=== PATIENT | male | born 1955 | race Caucasian/White ===

== ENCOUNTER 2021-06-19 11:56 | Day surgery (SDC) | payer MEDICARE ==
[2021-06-19 12:51] VITALS: RESP 16
[2021-06-19 13:02] LABS: Glucose,Whole Blood 119 mg/dL (75-99)
[2021-06-19] MEDS ORDERED: LACTATED RINGERS 1,000 ML IV ONE (13:03)
[2021-06-19] MEDS ORDERED: ONDANSETRON 4 MG/2 ML VIAL ONE (13:30)
[2021-06-19] MEDS ORDERED: MIDAZOLAM 2 MG/2 ML VIAL IVP ONE (13:36)
[2021-06-19] MEDS ORDERED: ONDANSETRON 4 MG/2 ML VIAL IVP ONE (13:36)
[2021-06-19] MEDS ORDERED: HEPARIN SODIUM,PORCINE 5,000 UNIT/ML 1 ML VIAL SQ ONE (13:51)
[2021-06-19] MEDS ORDERED: HEPARIN SODIUM,PORCINE/PF 5,000 UNIT/0.5 ML SYRINGE SQ ONE (13:52)
--- NOTE | 2021-06-19 14:01 | P.GSHP ---
History of Present Illness H&P Date: 06/19/21 Chief Complaint: Pancreatic cancer 65-year-old male here today for elective Port-A-Cath placement. Patient was recently diagnosed with pancreatic cancer involving the body of the pancreas. During recent exploration was found to have carcinomatosis. Medications and Allergies Home Medications Medication Instructions Recorded Confirmed Type Dulaglutide [Trulicity] 0.75 mg SQ WEEKLY 06/19/21 06/19/21 History Multivitamin [Multivitamins Adult 1 each PO DAILY 06/19/21 06/19/21 History Gummies] lisinopriL [Zestril] 5 mg PO DAILY 06/19/21 06/19/21 History Allergies Allergy/AdvReac Type Severity Reaction Status Date / Time Penicillins Allergy Unknown Verified 06/19/21 12:45 Surgical - Exam Vital Signs Temp Pulse Resp BP Pulse Ox 98.1 F 72 16 148/74 98 06/19/21 12:50 06/19/21 12:50 06/19/21 12:50 06/19/21 12:50 06/19/21 12:50 Physical exam: General: Well-developed, well-nourished HEENT: Normocephalic, sclerae nonicteric Abdomen: Nontender, nondistended Extremities: No edema Neuro: Alert and oriented Results - Labs Abnormal Lab Results - Last 24 Hours (Table) 06/19/21 Range/Units 13:00 POC Glucose (mg/dL) 119 H (75-99) mg/dL Assessment and Plan (1) Pancreatic cancer Narrative/Plan: 65-year-old male with pancreatic cancer. We'll proceed with Port-A-Cath placement at this time. Risks of bleeding, infection, DVT, pneumothorax, catheter malfunction, anesthesia related complications were discussed. The patient understands and wishes to proceed. Current Visit: Yes Status: Acute Code(s): C25.9 - MALIGNANT NEOPLASM OF PANCREAS, UNSPECIFIED SNOMED Code(s): 342109107
[2021-06-19] MEDS ORDERED: MIDAZOLAM 2 MG/2 ML VIAL ONE (14:03)
[2021-06-19] MEDS ORDERED: fentaNYL (PF) 50 MCG/ML 2 ML AMP ONE (14:03)
[2021-06-19] MEDS ORDERED: LIDOCAINE 1% INJ 10MG/ML (20 ML MDV) ONE (14:03)
[2021-06-19] MEDS ORDERED: PROPOFOL 10 MG/ML 20 ML VIAL IV ONE (14:03)
[2021-06-19] MEDS ORDERED: SODIUM CHLORIDE 0.9% 50 ML with ceFAZolin 2,000 MG IV ONE ×2 (14:08)
[2021-06-19] MEDS ORDERED: LIDOCAINE 1% INJ 10MG/ML (20 ML MDV) SQ ONE ×2 (14:21)
[2021-06-19] MEDS ORDERED: HYDROcodone/APAP 5-325MG 1 EACH TAB PO PRN (14:59)
[2021-06-19] MEDS ORDERED: NALOXONE 0.4 MG/ML 1 ML VIAL IV PRN (14:59)
--- NOTE | 2021-06-19 15:00 | P.OP ---
Date of Procedure: 06/19/21 Procedure(s) Performed: PREOPERATIVE DIAGNOSIS: Pancreatic cancer POSTOPERATIVE DIAGNOSIS: Same PROCEDURE: Port-A-Cath placement with fluoroscopic and ultrasound guidance SURGEON: Sammie EBL: Minimal ANESTHESIA: Sedation COMPLICATIONS: None OPERATIVE PROCEDURE: Patient was brought and placed on the operative table in the supine position. The patient was sedated per anesthesia that time. The chest and neck were prepped and draped in usual sterile fashion. The ultrasound probe was used to identify the location of the right internal jugular vein. The skin was localized with lidocaine. The Seldinger needle was advanced into the IJ under ultrasound guidance. The wire was advanced through the needle under fluoroscopic guidance into the superior vena cava. A port pocket was created in the right infraclavicular location. The catheter was tunneled from the wire entrance site to the port pocket. The port was then connected to the catheter. The dilator introducer was threaded over the guidewire. The guidewire and dilator were then removed. The catheter was advanced through the introducer and introducer was then removed. The tip was seen to be in the right atrial junction via fluoroscopy. A picture of the radiograph showing the tip at the radial digital junction was taken. Port was flushed with both saline and a Hep- Lock solution. There was good flow both in and out of the port. The port was sutured in underlying tissues using 3-0 silk sutures. The subcutaneous tissues were reapproximated using 3-0 Vicryl sutures and the skin at both locations using 4-0 Monocryl sutures. Skin glue and sterile dressings then applied. DISPOSITION: Stable to recovery room
--- NOTE | 2021-06-19 15:05 | FL ---
EXAMINATION TYPE: FL guided central line placemt DATE OF EXAM: 06/19/2021 CLINICAL HISTORY: Port-A-Cath insertion. TECHNIQUE: Fluoroscopy. COMPARISON: None. FINDINGS: Fluoroscopic guidance was provided during Port-A-Cath insertion procedure performed by Dr. Lombardo. A total of 49 seconds of fluoroscopic time was utilized during the procedure and 5 spot imag es was acquired. 5 images acquired show guidewire and subsequent placement of right internal jugular Mediport catheter with tip in the SVC. IMPRESSION: As Above.
[2021-06-19 15:09] VITALS: TEMP 97.7
--- NOTE | 2021-06-19 15:38 | XR ---
EXAMINATION TYPE: XR chest 1V confirm line [facility] DATE OF EXAM: 06/19/2021 COMPARISON: NONE HISTORY: Port-A-Cath insertion. TECHNIQUE: 2 AP portable semiupright views of the chest are obtained. FINDINGS: There is right internal jugular Mediport catheter terminating in SVC. No pneumothorax is se en. Bilateral lungs are clear. The cardiac silhouette size is within normal limits. The osseous st ructures are intact. Overlying EKG leads are present. IMPRESSION: As above.
[2021-06-19 16:04] VITALS: BP 129/75; PULSE 60
== END 2021-06-19 16:21 | disposition home or self-care (01) ==
LOC: OR 11:56
PROVIDERS: ATTEND Surgery
DX: C25.9 Malignant neoplasm of pancreas, unspecified (principal)
CPT/HCPCS: 36556; 77001; C1788; J2250; J1644; J2405; J0690; J2001; J3010; J1642; J2704

== ENCOUNTER → 2021-09-01 | Outpatient (CLI) | payer MEDICARE ==
[2021-09-01 13:55] LABS: African American GFR (CKD) >90 (>60 ml/min/1.73 sqM); Blood Urea Nitrogen 15 mg/dL (9-20); Non-African American GFR(CKD) >90 (>60 ml/min/1.73 sqM)
--- NOTE | 2021-09-01 15:06 | CT ---
EXAMINATION TYPE: CT abdomen w con DATE OF EXAM: 09/01/2021 COMPARISON: None HISTORY: C25.1 Obs for Mets. Pancreatic cancer CT DLP: 744 mGycm CONTRAST: CT scan of the abdomen and pelvis is performed without Oral Contrast and with IV Contrast, patient in jected with 100 mL of Isovue 370. FINDINGS: LUNG BASES-: No visible nodule. No infiltrate. LIVER/GB: No calcified gallstones. No space occupying hepatic lesion. Biliary tree is of normal ca liber. PANCREAS: The pancreatic body and tail are atrophic. Pancreatic head and neck are free of mass lesion . No inflammatory process seen. SPLEEN: No splenic enlargement. No lesion seen. ADRENALS: Mild thickening of the adrenal glands may reflect No nodule. No thickening. KIDNEYS/BLADDER: No hydronephrosis. No nephrolithiasis. No distinct renal mass. Urinary bladder g rossly unremarkable. BOWEL: Visualized bowel loops are of normal caliber. LYMPH NODES: No greater than 1cm abdominal or pelvic lymph nodes are appreciated. AORTA: No significant abnormality. OSSEOUS STRUCTURES: No significant abnormality is seen. OTHER: No significant additional abnormality is seen. IMPRESSION: 1. The pancreatic body and tail are atrophic. Pancreatic head and neck are free of mass lesion. No ev idence for metastatic disease.
== END | disposition home or self-care (01) ==
LOC: RADPROMAIN 08:29
PROVIDERS: ATTEND Internal Medicine Hematology & Oncology
DX: C25.1 Malignant neoplasm of body of pancreas (principal)
CPT/HCPCS: 82565; 84520; 74160; 36415; Q9967

== ENCOUNTER → 2021-12-25 | Outpatient (CLI) | payer MEDICARE ==
[2021-12-25 11:45] LABS: African American GFR (CKD) >90 (>60 ml/min/1.73 sqM); Blood Urea Nitrogen 16 mg/dL (9-20); Non-African American GFR(CKD) >90 (>60 ml/min/1.73 sqM)
--- NOTE | 2021-12-25 13:38 | CT ---
EXAMINATION TYPE: CT ChestAbdPelvis w con DATE OF EXAM: 12/25/2021 COMPARISON: 09/01/2021 HISTORY: 66-year-old male f/u pancreatic cancer. C25.1 MALIGNANT NEOPLASM OF BODY OF PANCREAS TECHNIQUE: Contiguous axial scanning of the chest, abdomen, and pelvis performed with IV Contrast, pa tient injected with 100 mL of Isovue 300. Delayed images through the kidneys were obtained. Coronal/s agittal reconstructions performed. CT DLP: 888.1 mGycm Automated exposure control for dose reduction was used. FINDINGS: CHEST: Heart normal size with trace 5 mm anterior pericardial fluid. LAD coronary artery calcifications. Ectatic ascending aorta 3.7 cm. Oval in configuration to the aortic arch. Ectatic upper descending th oracic aorta 3.1 cm. Right anterior chest wall injection port. Catheter tip within the SVC. No thoracic lymphadenopathy by CT size criteria. There is mild centrilobular emphysema especially in the upper lungs. Hyperinflation. No consolidation or pleural effusion. ABDOMEN: No focal liver lesion seen. New mild perihepatic ascites There is some soft tissue thickening at the level of the gastric antrum measuring 3.9 x 3.6 cm. Uncle ar if this represents nondistended segment of stomach. New caliber narrowing of the main portal vein and portal venous confluence, and axial image 66. Mild thickening of the left adrenal gland is unchanged. Gallbladder, right adrenal gland, kidneys, and spleen within normal limits. There appears to be some progressive atrophy of the tail and distal body of the pancreas. The previou sly seen mild fullness at the level of the pancreatic body adjacent to dystrophic calcification is no longer seen. Mild atherosclerotic calcifications infrarenal abdominal aorta and iliac arteries. No dilated small bowel or free air. Additional new mild to moderate pelvic free fluid anteriorly. There is also some omental stranding an d soft tissue thickening along the lower abdomen, axial image 89. Some additional similar changes are present at the right lower quadrant adjacent to the appendix e and within the mesentery, axial image 92 and 96. Some lesser degree of similar changes are present along the left lower quadrant, axial image 100. Otherwise, no mesenteric or retroperitoneal lymphadenopathy seen. PELVIS: Circumferential bladder wall thickening. Prostatomegaly at 6.6 cm wide. Mild to moderate pelvic free fluid. No pelvic lymphadenopathy seen. BONES: Mild degenerative change of the hips. Degenerative change of the right SI joint. Facet arthropathy mi d to lower lumbar spine. Trace grade 1 retrolisthesis L2-L3 and L3-L4. No osseous destructive process seen. IMPRESSION: 1. THE PREVIOUSLY SEEN SUBTLE SOFT TISSUE FULLNESS AT THE BODY OF THE PANCREAS IS NO LONGER SEEN. THE RE IS SLIGHT PROGRESSION IN ATROPHY OF THE PANCREATIC TAIL. 2. HOWEVER, THERE ARE NEW CHANGES INCLUDING DECREASED CALIBER TO THE MAIN PORTAL VEIN AND PORTAL VENO US CONFLUENCE THAT COULD BE SECONDARY TO SOME INTERVAL RADIATION OR OTHER POSTTREATMENT CHANGE. 3. THE PRESENCE OF NEW MILD PERIHEPATIC ASCITES, NEW MILD TO MODERATE PELVIC ASCITES, LOWER OMENTAL S OFT TISSUE THICKENING, AND SOME ADDITIONAL LOWER QUADRANT MESENTERIC THICKENING IS NONSPECIFIC BUT EA RLY PERITONEAL SPREAD OF DISEASE IS NOT EXCLUDED AT THIS TIME. 4. ADDITIONALLY, NEW 3.9 CM SOFT TISSUE THICKENING AT THE GASTRIC ANTRUM COULD REPRESENT A NONDISTEND ED SEGMENT OF STOMACH. SEROSAL INVOLVEMENT NOT EXCLUDED AT THIS TIME.
== END | disposition home or self-care (01) ==
LOC: RADCTMAIN 10:22
PROVIDERS: ATTEND Internal Medicine Hematology & Oncology
DX: C25.1 Malignant neoplasm of body of pancreas (principal); R18.8 Other ascites
CPT/HCPCS: 82565; 84520; 71260; 74177; 36415; Q9967

== ENCOUNTER 2022-01-02 16:14 | Inpatient (IN) | payer MEDICARE ==
[2022-01-02 17:46] LABS: Basophils # (A) 0.1 k/uL (0-0.2); Basophils % (A) 0 %; Eosinophils # (A) 0.1 k/uL (0-0.7); Eosinophils % (A) 1 %; HCT 48.8 % (39.0-53.0); Lymphocytes % (A) 8 %; MCH 30.1 pg (25.0-35.0); MCHC 32.7 g/dL (31.0-37.0); Mean Platelet Volume 8.2; Monocytes # (A) 0.5 k/uL (0-1.0); Monocytes % (A) 4 %; Neutrophils # (A) 10.9 k/uL (1.3-7.7); Neutrophils % (A) 86 %; Platelet Count 183 k/uL (150-450); RBC 5.31 m/uL (4.30-5.90); RDW 15.6 % (11.5-15.5); WBC 12.7 k/uL (3.8-10.6)
--- NOTE | 2022-01-02 17:53 | ED ---
General Adult HPI - General Chief complaint: Abdominal Pain Stated complaint: 2 Weeks constipated, stage 4 cancer Time Seen by Provider: 01/02/22 17:25 Source: patient, family Mode of arrival: wheelchair Limitations: no limitations - History of Present Illness Initial comments: Dictation was produced using [employer] dictation software. please excuse any grammatical, word or spelling errors. Chief Complaint: 66-year-old male past medical history of pancreatic cancer on chemotherapy presents to the ER for concerns of constipation History of Present Illness: 76-year-old male pancreatic cancer. Patient was told by his oncologist come to the ER to be evaluated. Patient states that he has not had a bowel movement in 2-3 weeks. Patient states he has been passing gas. He has history of pancreatic cancer for which he gets chemotherapy for. Patient denies any fever. He has had poor appetite. He has been having significant nausea and vomiting. Patient does have some mild periumbilical abdominal pain. Patient recently had a CT ordered by oncologist for surveillance. There was evidence of peritoneal inflammation. Sates that he has been passing gas. The ROS documented in this emergency department record has been reviewed and confirmed by me. Those systems with pertinent positive or negative responses have been documented in the HPI. All other systems are other negative and/or noncontributory. PHYSICAL EXAM: General Impression: Alert and oriented x3, not in acute distress HEENT: Normocephalic atraumatic, extra-ocular movements intact, pupils equal and reactive to light bilaterally, mucous membranes moist. Cardiovascular: Heart regular rate and rhythm Chest: Able to complete full sentences, no retractions, no tachypnea Abdomen: abdomen soft, mild palpatory tenderness to the periumbilical area, non-distended, no organomegaly Musculoskeletal: Pulses present and equal in all extremities, no peripheral raad a Motor: no focal deficits noted Neurological: CN II-XII grossly intact, no focal motor or sensory deficits noted Skin: Intact with no visualized rashes Psych: Normal affect and mood ED course: 66-year-old male past medical history of pancreatic cancer presents to the emergency room for concerns of constipation. Vital signs upon arrival are within acceptable limits. Patient does not appear to be in acute distress at the bedside. Patient complaining of severe nausea upon reevaluation at 7:42 PM. Labs obtained showing mild leukocytosis 12.7. M will was stable. Coag panel is negative. Metabolic panel shows findings within acceptable limits there does appear to be some mild dehydration. At this point there is concern that his nausea is cancer related. Does not appear to be obstruction or acute processes on patient's abdominal x-ray. Disposition options were discussed. Patient has been failing outpatient treatment. he would benefit from inpatient stay for IV hydration, IV antiemetics and oncology consult. Patient mid to [facility]. - Related Data Home Medications Medication Instructions Recorded Confirmed Dulaglutide [Trulicity] 0.75 mg SQ WEEKLY 06/19/21 06/19/21 Multivitamin [Multivitamins Adult 1 each PO DAILY 06/19/21 06/19/21 Gummies] lisinopriL [Zestril] 5 mg PO DAILY 06/19/21 06/19/21 Allergies Allergy/AdvReac Type Severity Reaction Status Date / Time Penicillins Allergy Unknown Verified 06/19/21 12:45 Review of Systems ROS Statement: Those systems with pertinent positive or pertinent negative responses have been documented in the HPI. ROS Other: All systems not noted in ROS Statement are negative. Past Medical History Past Medical History: Diabetes Mellitus Additional Past Medical History / Comment(s): psncreatic ca History of Any Multi-Drug Resistant Organisms: None Reported Additional Past Surgical History / Comment(s): exploratory laporatomy Past Psychological History: No Psychological Hx Reported Smoking Status: Current every day smoker Past Alcohol Use History: None Reported Past Drug Use History: None Reported General Exam Limitations: no limitations Course Vital Signs 01/02/22 16:36 Temperature 98.1 F Pulse Rate 85 Respiratory 18 Rate Blood Pressure 131/85 O2 Sat by Pulse 97 Oximetry Medical Decision Making - Lab Data Result diagrams: 01/02/22 17:41 01/02/22 17:41 Lab Results 01/02/22 01/02/22 01/02/22 Range/Units 17:41 17:41 17:41 WBC 12.7 H (3.8-10.6) k/uL RBC 5.31 (4.30-5.90) m/uL Hgb 16.0 (13.0-17.5) gm/dL Hct 48.8 (39.0-53.0) % MCV 92.0 (80.0-100.0) fL MCH 30.1 (25.0-35.0) pg MCHC 32.7 (31.0-37.0) g/dL RDW 15.6 H (11.5-15.5) % Plt Count 183 (150-450) k/uL MPV 8.2 Neutrophils % 86 % Lymphocytes % 8 % Monocytes % 4 % Eosinophils % 1 % Basophils % 0 % Neutrophils # 10.9 H (1.3-7.7) k/uL Lymphocytes # 1.0 (1.0-4.8) k/uL Monocytes # 0.5 (0-1.0) k/uL Eosinophils # 0.1 (0-0.7) k/uL Basophils # 0.1 (0-0.2) k/uL PT 12.0 (9.0-12.0) sec INR 1.1 (<1.2) APTT 23.2 (22.0-30.0) sec Sodium 135 L (137-145) mmol/L Potassium 4.3 (3.5-5.1) mmol/L Chloride 94 L (98-107) mmol/L Carbon Dioxide 23 (22-30) mmol/L Anion Gap 18 mmol/L BUN 21 H (9-20) mg/dL Creatinine 0.80 (0.66-1.25) mg/dL Est GFR (CKD-EPI)AfAm >90 (>60 ml/min/1.73 sqM) Est GFR (CKD-EPI)NonAf >90 (>60 ml/min/1.73 sqM) Glucose 125 H (74-99) mg/dL Calcium 9.3 (8.4-10.2) mg/dL Total Bilirubin 1.4 H (0.2-1.3) mg/dL AST 23 (17-59) U/L ALT 17 (4-49) U/L Alkaline Phosphatase 93 (38-126) U/L Total Protein 6.9 (6.3-8.2) g/dL Albumin 4.4 (3.5-5.0) g/dL Disposition Clinical Impression: Nausea, Dehydration Disposition: ADMITTED IP TO THIS HOSP Condition: Fair Referrals: Blair Zuñiga DO [Primary Care Provider] - 1-2 days Decision Time: 19:44
[2022-01-02 17:57] LABS: INR 1.1 (<1.2); Partial Thromboplastin Time 23.2 sec (22.0-30.0)
[2022-01-02 17:59] LABS: ALT 17 U/L (4-49); AST 23 U/L (17-59); African American GFR (CKD) >90 (>60 ml/min/1.73 sqM); Albumin 4.4 g/dL (3.5-5.0); Alkaline Phosphatase 93 U/L (38-126); Anion Gap 18 mmol/L; Blood Urea Nitrogen 21 mg/dL (9-20); Calcium 9.3 mg/dL (8.4-10.2); Carbon Dioxide 23 mmol/L (22-30); Chloride 94 mmol/L (98-107); Glucose 125 mg/dL (74-99); Non-African American GFR(CKD) >90 (>60 ml/min/1.73 sqM); Potassium 4.3 mmol/L (3.5-5.1); Sodium 135 mmol/L (137-145); Total Bilirubin 1.4 mg/dL (0.2-1.3); Total Protein 6.9 g/dL (6.3-8.2)
--- NOTE | 2022-01-02 19:12 | XR ---
EXAMINATION TYPE: XR abdomen 1V DATE OF EXAM: 01/02/2022 COMPARISON: NONE HISTORY: Constipation TECHNIQUE: 2 views upright FINDINGS: There is some contrast material in the large bowel. No sign of intestinal obstruction or pn eumoperitoneum. Fecal pattern is normal. No evidence of a mass. Lung bases are clear. No calcificatio ns seen over the kidneys. IMPRESSION: Nonacute abdomen
[2022-01-02] MEDS ORDERED: SODIUM CHLORIDE 0.9% 1,000 ML IV STA (19:38)
[2022-01-02] MEDS ORDERED: ACETAMINOPHEN TAB 325 MG TAB PO PRN (19:41)
[2022-01-02] MEDS ORDERED: NALOXONE 0.4 MG/ML 1 ML VIAL IV PRN (19:41)
[2022-01-02] MEDS ORDERED: ONDANSETRON 4 MG/2 ML VIAL IVP PRN (19:41)
[2022-01-02] MEDS: SODIUM CHLORIDE 0.9% 1,000 ML IV SCH (20:43)
[2022-01-02] MEDS ORDERED: DOCUSATE 100 MG CAP PO PRN (21:45)
[2022-01-02] MEDS ORDERED: MIRTAZAPINE 15 MG TAB PO PRN (21:45)
[2022-01-02] MEDS ORDERED: DEXTROSE 50% SYRINGE 50 ML IVP PRN ×2 (21:59)
--- NOTE | 2022-01-02 21:59 | P.HPIM ---
History of Present Illness H&P Date: 01/02/22 Chief Complaint: Intractable nausea The patient is a 66-year-old male history of pancreatic cancer status post chemotherapy last 26 of November. On December [address] of abdomen done which showed some peritoneal inflammation. The patient states since that morning on the CAT scan he knows he wasn't feeling well. He states since then he has had nausea and has not had a bowel movement for the last 2 weeks. He states he is passing gas. The patient states he's been unable to eat the last 5 days and has emesis even with water. The patient describes those symptoms to his oncologist he states he tried to take [id number]-[id number] laxatives however he was unable to tolerate any oral medications. He presented to the emergency room is hospitalized for further management. The patient had an x-ray which showed the presence of contrast in the large bowel. A CT of the abdomen showed a new 3.9 cm soft tissue thickening at the gastric antrum possible and n ondistended segment of stomach. The patient denies any fevers, chest pain, shortness of breath. The patient's vital signs showed a temperature of 98.1, pulse 85, respiratory rate 18, systolic blood pressure 131, diastolic blood pressure 85. He had a leukocytosis of 12.7, bun 21, creatinine 0.8. Review of Systems complete review of systems was done and negative other than as stated above Past Medical History Past Medical History: Diabetes Mellitus, Prostate Disorder Additional Past Medical History / Comment(s): pancreatic ca-dx may 2021-chemo x13 treatments History of Any Multi-Drug Resistant Organisms: None Reported Additional Past Surgical History / Comment(s): exploratory laporatomy for poss pancrease removal 05/31. Past Anesthesia/Blood Transfusion Reactions: No Reported Reaction Past Psychological History: No Psychological Hx Reported Smoking Status: Current every day smoker Past Alcohol Use History: None Reported Past Drug Use History: None Reported Medications and Allergies Home Medications Medication Instructions Recorded Confirmed Type Dulaglutide [Trulicity] 0.75 mg SQ WEEKLY 06/19/21 01/02/22 History Multivitamin [Multivitamins Adult 1 tab PO DAILY 06/19/21 01/02/22 History Gummies] Docusate [Colace] 100 mg PO BID PRN 01/02/22 01/02/22 History Mirtazapine [Remeron] 15 mg PO HS PRN 01/02/22 01/02/22 History Saw [place] 500 mg PO BID 01/02/22 01/02/22 History Vit C/E/Zn/Coppr/Lutein/Zeaxan 1 tab PO DAILY 01/02/22 01/02/22 History [Preservision Areds 2 Chew Tab] Allergies Allergy/AdvReac Type Severity Reaction Status Date / Time Penicillins Allergy Rash/Hives Verified 01/02/22 20:17 Physical Exam Vitals: Vital Signs Temp Pulse Pulse Resp BP BP Pulse Ox 01/02/22 21:37 98.5 F 74 16 161/78 98 01/02/22 16:36 98.1 F 85 18 131/85 97 Intake and Output 01/02/22 01/02/22 01/02/22 06:59 14:59 22:59 Other: Weight 76 kg - Constitutional thin male General appearance: no acute distress - EENT Eyes: PERRLA Ears: bilateral: normal - Cardiovascular Rhythm: regular - Gastrointestinal General gastrointestinal: normal bowel sounds - Integumentary Integumentary: normal turgor - Neurologic Neurologic: CNII-XII intact - Musculoskeletal Musculoskeletal: strength equal bilaterally - Psychiatric Psychiatric: A&O x's 3, appropriate affect Results CBC & Chem 7: 01/02/22 17:41 01/02/22 17:41 Labs: Abnormal Lab Results - Last 24 Hours (Table) 01/02/22 01/02/22 Range/Units 17:41 17:41 WBC 12.7 H (3.8-10.6) k/uL RDW 15.6 H (11.5-15.5) % Neutrophils # 10.9 H (1.3-7.7) k/uL Sodium 135 L (137-145) mmol/L Chloride 94 L (98-107) mmol/L BUN 21 H (9-20) mg/dL Glucose 125 H (74-99) mg/dL Total Bilirubin 1.4 H (0.2-1.3) mg/dL Abdominal x-ray: report reviewed Thrombosis Risk Factor Assmnt - Choose All That Apply Any of the Below Risk Factors Present?: No Each Risk Factor Represents 2 Points: Age 61-74 years, Malignancy Other congenital or acquired thrombophilia - If yes, enter type in comment: No Thrombosis Risk Factor Assessment Total Risk Factor Score: 4 Thrombosis Risk Factor Assessment Level: Moderate Risk Assessment and Plan (1) Nausea Narrative/Plan: Patient with intractable nausea and a significant stool burden noted on x-ray we'll give clear liquids anti-medics avoid input from oncology since his symptoms have progressed will repeat CT of the abdomen with IV contrast Current Visit: Yes Status: Acute Code(s): R11.0 - NAUSEA SNOMED Code(s): 148602459 (2) Dehydration Narrative/Plan: Duration IV fluids. Current Visit: Yes Status: Acute Code(s): E86.0 - DEHYDRATION SNOMED Code(s): 10205804 (3) Pancreatic cancer Narrative/Plan: Possible perineural spread could be contributing to symptoms. Will consult oncology appreciate input. Current Visit: No Status: Acute Code(s): C25.9 - MALIGNANT NEOPLASM OF PANCREAS, UNSPECIFIED SNOMED Code(s): 477588971 (4) Diabetes Narrative/Plan: Patient on weekly Trulicity, monitor blood sugars, sliding scale coverage Current Visit: Yes Status: Acute Code(s): E11.9 - TYPE 2 DIABETES MELLITUS WITHOUT COMPLICATIONS SNOMED Code(s): 40103471 Plan: Clear liquids, repeat CT of the abdomen, oncology consult anti-emetics
--- NOTE | 2022-01-02 23:40 | CT ---
EXAMINATION TYPE: CT abdomen pelvis w con DATE OF EXAM: 01/02/2022 COMPARISON: 12/25/2021 HISTORY: abdominal pain, nausea CT DLP: 648.3 mGycm Automated exposure control for dose reduction was used. CONTRAST: Performed with IV Contrast, patient injected with 100ml mL of Isovue 300. Heart size is normal. Lung bases are clear. No pleural effusion. No pericardial effusion. Liver is intact. Stomach is dilated with fluid. Small bowel is not dilated. Spleen is intact. There i s no pancreatic mass. There is some pancreatic atrophy with enlargement of the pancreatic duct. Gallb ladder appears normal. The bile ducts are not dilated. There is no adrenal mass. Kidneys have normal size. No hydronephrosis. Ureters are not dilated. Delay ed images show normal renal excretion. There is abdominal ascites fluid around the liver. Urinary shantal dder is large. Urinary bladder measures 13.5 cm in length. No inguinal hernia. There is small amount of fluid in the paracolic gutters. There is no mesenteric edema. No free air. No sign of a bowel obstruction. There is contrast material in the large bowel which is not dilated. The lumbar vertebra have normal alignment. No compression fracture. No significant disc space narrowi ng. Bony pelvis is intact. The hip joints are intact. Sacroiliac joints are intact. IMPRESSION: There is abdominal ascites fluid mostly around the liver which is significantly increased compared to recent exam. There is dilated stomach which is increased compared to old exam. This could relate to gastroparesis or gastric outlet obstruction.
[2022-01-03 07:51] LABS: Glucose,Whole Blood 175 mg/dL (70-110)
[2022-01-03] MEDS: INSULIN ASPART (NovoLOG) 100 UNIT/ML VIAL SQ SCH ×4 (08:17→20:21)
[2022-01-03] MEDS: ENOXAPARIN 40 MG/0.4 ML SYRINGE SQ SCH (08:18)
[2022-01-03] MEDS: MULTIVITAMINS, THERA 1 EACH TAB PO SCH (08:18)
[2022-01-03] MEDS: VIT A,C & E-LUTEIN-MINERALS 1 EACH TAB PO SCH (08:19)
[2022-01-03] MEDS ORDERED: NON FORMULARY DRUG (Saw Palmetto [Saw Palmetto] 500 MG Capsule) PO SCH (09:00)
--- NOTE | 2022-01-03 11:20 | P.GSCN ---
History of Present Illness Consult date: 01/03/22 Reason for Consult: Abdominal pain History of present illness: 66-year-old male with history of known pancreatic cancer. He was [place] [facility] [place] [facility] initially for pancreatic resection and was found to have peritoneal implants. Patient was started on palliative chemotherapy at that time. Patient says that he has had issues over the last 2-3 weeks with decreased bowel function. Last bowel movement was about 1-2 weeks ago. He has had decreased oral intake for the last few weeks as well with very little intake in the last 1 week. He has had nausea and vomiting that has increased starting yesterday. He feels full. There is no appetite. He has had further weight loss. CAT scan showed distended stomach consistent with possible gastric outlet obstruction. Also increasing abdominal ascites is noted. Review of Systems The patient denies any acute changes in vision or hearing, no dysphagia or odynophagia, no chest pain or shortness of breath, no dysuria or hematuria, no headache, no runny nose, no rectal bleeding or melena Past Medical History Past Medical History: Diabetes Mellitus, Prostate Disorder Additional Past Medical History / Comment(s): pancreatic ca-dx may 2021-chemo x13 treatments History of Any Multi-Drug Resistant Organisms: None Reported Additional Past Surgical History / Comment(s): exploratory laporatomy for poss pancrease removal 05/31. Past Anesthesia/Blood Transfusion Reactions: No Reported Reaction Past Psychological History: No Psychological Hx Reported Smoking Status: Current every day smoker Past Alcohol Use History: None Reported Past Drug Use History: None Reported Medications and Allergies Home Medications Medication Instructions Recorded Confirmed Type Dulaglutide [Trulicity] 0.75 mg SQ WEEKLY 06/19/21 01/02/22 History Multivitamin [Multivitamins Adult 1 tab PO DAILY 06/19/21 01/02/22 History Gummies] Docusate [Colace] 100 mg PO BID PRN 01/02/22 01/02/22 History Mirtazapine [Remeron] 15 mg PO HS PRN 01/02/22 01/02/22 History Saw [place] 500 mg PO BID 01/02/22 01/02/22 History Vit C/E/Zn/Coppr/Lutein/Zeaxan 1 tab PO DAILY 01/02/22 01/02/22 History [Preservision Areds 2 Chew Tab] Allergies Allergy/AdvReac Type Severity Reaction Status Date / Time Penicillins Allergy Rash/Hives Verified 01/02/22 20:17 Surgical - Exam Vital Signs Temp Pulse Resp BP Pulse Ox 98.1 F 85 18 131/85 97 01/02/22 16:36 01/02/22 16:36 01/02/22 16:36 01/02/22 16:36 01/02/22 16:36 Physical exam: General: Well-developed, well-nourished HEENT: Normocephalic, sclerae nonicteric Abdomen: Mild epigastric tenderness, previous scars noted, no rebound or guarding Extremities: No edema Neuro: Alert and oriented Results - Labs 01/02/22 17:41 01/02/22 17:41 Abnormal Lab Results - Last 24 Hours (Table) 01/02/22 01/02/22 01/03/22 Range/Units 17:41 17:41 07:49 WBC 12.7 H (3.8-10.6) k/uL RDW 15.6 H (11.5-15.5) % Neutrophils # 10.9 H (1.3-7.7) k/uL Sodium 135 L (137-145) mmol/L Chloride 94 L (98-107) mmol/L BUN 21 H (9-20) mg/dL Glucose 125 H (74-99) mg/dL POC Glucose (mg/dL) 175 H (70-110) mg/dL Total Bilirubin 1.4 H (0.2-1.3) mg/dL Diabetes panel 01/02/22 Range/Units 17:41 Sodium 135 L (137-145) mmol/L Potassium 4.3 (3.5-5.1) mmol/L Chloride 94 L (98-107) mmol/L Carbon Dioxide 23 (22-30) mmol/L BUN 21 H (9-20) mg/dL Creatinine 0.80 (0.66-1.25) mg/dL Glucose 125 H (74-99) mg/dL Calcium 9.3 (8.4-10.2) mg/dL AST 23 (17-59) U/L ALT 17 (4-49) U/L Alkaline Phosphatase 93 (38-126) U/L Total Protein 6.9 (6.3-8.2) g/dL Albumin 4.4 (3.5-5.0) g/dL Calcium panel 01/02/22 Range/Units 17:41 Calcium 9.3 (8.4-10.2) mg/dL Albumin 4.4 (3.5-5.0) g/dL Pituitary panel 01/02/22 Range/Units 17:41 Sodium 135 L (137-145) mmol/L Potassium 4.3 (3.5-5.1) mmol/L Chloride 94 L (98-107) mmol/L Carbon Dioxide 23 (22-30) mmol/L BUN 21 H (9-20) mg/dL Creatinine 0.80 (0.66-1.25) mg/dL Glucose 125 H (74-99) mg/dL Calcium 9.3 (8.4-10.2) mg/dL Adrenal panel 01/02/22 Range/Units 17:41 Sodium 135 L (137-145) mmol/L Potassium 4.3 (3.5-5.1) mmol/L Chloride 94 L (98-107) mmol/L Carbon Dioxide 23 (22-30) mmol/L BUN 21 H (9-20) mg/dL Creatinine 0.80 (0.66-1.25) mg/dL Glucose 125 H (74-99) mg/dL Calcium 9.3 (8.4-10.2) mg/dL Total Bilirubin 1.4 H (0.2-1.3) mg/dL AST 23 (17-59) U/L ALT 17 (4-49) U/L Alkaline Phosphatase 93 (38-126) U/L Total Protein 6.9 (6.3-8.2) g/dL Albumin 4.4 (3.5-5.0) g/dL Assessment and Plan (1) Gastric distention Narrative/Plan: 76-year-old male with suspected gastric outlet obstruction from pancreatic cancer. Will place nasogastric tube. Once stomach is decompressed will order a upper GI. We'll follow with you. Current Visit: Yes Status: Acute Code(s): K31.89 - OTHER DISEASES OF STOMACH AND DUODENUM SNOMED Code(s): 525742616
[2022-01-03 12:06] VITALS: BMI 21.4
--- NOTE | 2022-01-03 12:41 | P.PN ---
Subjective Progress Note Date: 01/03/22 Patient still has nausea and vomiting with evidence of gastric outlet obstruction on computed tomography scan. Pending oncology consult. Pending surgery consult. Gen: awake, alert, cachectic HEENT: normocephalic, atraumatic, good hearing acuity, moist mucous membranes Resp: good air exchange, breathing comfortably with no accessory muscle use CVS: good distal perfusion x 4, GI: soft, NTTP, ND : no SPT, no CVAT, wood catheter not present MSK: no pitting edema, no clubbing Neuro: non-focal, moving all extremities Psych: cooperative, euthymic mood Assessment/plan: Gastric outlet obstruction -Admit to inpatient -Surgery consult -NG tube -Nutrition consult for consideration of TPN -Nausea control -IV fluids Metastatic pancreatic cancer Ascites, likely malignant -Oncology consult -Symptomatic management Diabetes -Low-dose insulin sliding scale Patient is DO NOT RESUSCITATE/DO NOT INTUBATE DVT prophylaxis with enoxaparin Objective - Vital Signs Vital signs: Vital Signs Temp 97.5 F L 01/03/22 04:43 Pulse 84 01/03/22 08:41 Resp 18 01/03/22 08:30 BP 146/78 01/03/22 08:41 Pulse Ox 95 01/03/22 04:43 FiO2 Intake & Output 01/02/22 01/03/22 01/03/22 18:59 06:59 18:59 Intake Total 1500 Balance 1500 Weight 73.482 kg 76 kg Intake: Intake, IV Titration 1500 Amount Sodium Chloride 0.9% 1, 1500 000 ml @ 75 mls/hr IV . [id number] [facility] Rx#:[id number] Other: Voiding Method Toilet Toilet - Labs CBC & Chem 7: 01/02/22 17:41 01/02/22 17:41 Labs: Abnormal Lab Results - Last 24 Hours (Table) 01/02/22 01/02/22 01/03/22 Range/Units 17:41 17:41 07:49 WBC 12.7 H (3.8-10.6) k/uL RDW 15.6 H (11.5-15.5) % Neutrophils # 10.9 H (1.3-7.7) k/uL Sodium 135 L (137-145) mmol/L Chloride 94 L (98-107) mmol/L BUN 21 H (9-20) mg/dL Glucose 125 H (74-99) mg/dL POC Glucose (mg/dL) 175 H (70-110) mg/dL Total Bilirubin 1.4 H (0.2-1.3) mg/dL
[2022-01-03 12:56] LABS: Glucose,Whole Blood 161 mg/dL (70-110)
[2022-01-03] MEDS: SODIUM CHLORIDE 0.9% 1,000 ML IV SCH ×2 (13:41→20:21)
[2022-01-03 17:31] LABS: Glucose,Whole Blood 142 mg/dL (70-110)
--- NOTE | 2022-01-03 18:15 | P.CONS ---
History of Present Illness - Reason for Consult Consult date: 01/03/22 Pancreatic cancer Requesting physician: Ifoema Ball - Chief Complaint Intractable nausea - History of Present Illness Mr. Carrion is a very pleasant 66-year-old gentleman with a history of metastatic pancreatic cancer, follows with Dr. Lombardo, with a known peritoneal metastases, on palliative chemotherapy, who is here for feeling ill after having a restaging computed tomography scan done on 12/25/21. He was having increasing nausea which brought him to the hospital. He has been constipated for a couple weeks now but continues to pass gas. Decreased appetite and oral intake for the past few days. CT from 12/25/21 did reveal resolution of the subtle soft tissue fullness was previously seen in the body of the pancreas with slightly increased progression in the pancreatic tail. Post radiation and treatment changes seen in the main portal vein and portal venous confluence. Peritoneal changes were described as omental soft tissue thickening with additional lower quadrant mesenteric thickening that is nonspecific, cannot rule out early metastatic disease, as well as new mild to moderate ascites. He also had a new 3.97 L soft tissue thickening at the gastric antrum of unclear etiology. In the ER he had repeat computed tomography scan of the abdomen and pelvis which again showed ascites, mostly around the liver, that had significantly increased and increased dilated stomach due to gastroparesis or gastric outlet obstruction. He was admitted and evaluated by surgery, with plan of upper GI once stomach was decompressed with NG tube. Now with NG tube, feeling better with improved nausea and quite a bit of gastric secretions removed than a few hours. He continues to have abdominal pain however when swallowing. Past Medical History Past Medical History: Diabetes Mellitus, Prostate Disorder Additional Past Medical History / Comment(s): pancreatic ca-dx may 2021-chemo x13 treatments History of Any Multi-Drug Resistant Organisms: None Reported Additional Past Surgical History / Comment(s): exploratory laporatomy for poss pancrease removal 05/31. Past Anesthesia/Blood Transfusion Reactions: No Reported Reaction Past Psychological History: No Psychological Hx Reported Smoking Status: Current every day smoker Past Alcohol Use History: None Reported Past Drug Use History: None Reported Medications and Allergies Home Medications Medication Instructions Recorded Confirmed Type Dulaglutide [Trulicity] 0.75 mg SQ WEEKLY 06/19/21 01/02/22 History Multivitamin [Multivitamins Adult 1 tab PO DAILY 06/19/21 01/02/22 History Gummies] Docusate [Colace] 100 mg PO BID PRN 01/02/22 01/02/22 History Mirtazapine [Remeron] 15 mg PO HS PRN 01/02/22 01/02/22 History Saw [place] 500 mg PO BID 01/02/22 01/02/22 History Vit C/E/Zn/Coppr/Lutein/Zeaxan 1 tab PO DAILY 01/02/22 01/02/22 History [Preservision Areds 2 Chew Tab] Allergies Allergy/AdvReac Type Severity Reaction Status Date / Time Penicillins Allergy Rash/Hives Verified 01/02/22 20:17 Physical Exam Vitals: Vital Signs Temp Pulse Pulse Resp BP BP Pulse Ox 01/03/22 12:52 97.8 F 78 15 145/74 96 01/03/22 08:41 84 146/78 01/03/22 08:30 84 18 01/03/22 04:43 97.5 F L 80 18 156/72 95 01/02/22 21:37 98.5 F 74 16 161/78 98 01/02/22 16:36 98.1 F 85 18 131/85 97 Intake and Output 01/02/22 01/03/22 01/03/22 22:59 06:59 14:59 Intake Total 1500 Output Total 2400 Balance 1500 -2400 Intake: Intake, IV Titration 1500 Amount Sodium Chloride 0.9% 1, 1500 000 ml @ 75 mls/hr IV . [id number] [facility] Rx#:[id number] Output: Gastric Drainage 2400 Other: Voiding Method Toilet Toilet Weight 76 kg 76 kg Gen: NAD HEENT: No conjunctival pallor or scleral icterus. Mucosa moist. NG tube in place. Neck: Supple Lungs: No respiratory distress Heart: Regular rate Abd: Soft, nontender MSK: appropriate strength Neuro: Alert and oriented x3 Skin: No jaundice Psych: Appropriate affect Results CBC & Chem 7: 01/02/22 17:41 01/02/22 17:41 Labs: Abnormal Lab Results - Last 24 Hours (Table) 01/02/22 01/02/22 01/02/22 Range/Units 17:41 17:41 17:41 WBC 12.7 H (3.8-10.6) k/uL RDW 15.6 H (11.5-15.5) % Neutrophils # 10.9 H (1.3-7.7) k/uL Sodium 135 L (137-145) mmol/L Chloride 94 L (98-107) mmol/L BUN 21 H (9-20) mg/dL Glucose 125 H (74-99) mg/dL POC Glucose (mg/dL) (70-110) mg/dL Hemoglobin A1c 6.5 H (0.0-6.0) % Total Bilirubin 1.4 H (0.2-1.3) mg/dL 01/03/22 01/03/22 Range/Units 07:49 12:55 WBC (3.8-10.6) k/uL RDW (11.5-15.5) % Neutrophils # (1.3-7.7) k/uL Sodium (137-145) mmol/L Chloride (98-107) mmol/L BUN (9-20) mg/dL Glucose (74-99) mg/dL POC Glucose (mg/dL) 175 H 161 H (70-110) mg/dL Hemoglobin A1c (0.0-6.0) % Total Bilirubin (0.2-1.3) mg/dL CT scan - abdomen: report reviewed CT scan - pelvis: report reviewed Assessment and Plan Assessment: 1. Metastatic pancreatic cancer 2. Intractable nausea 3. Gastric outlet obstruction vs gastroparesis 4. New ascites 5. Omental thickening, unclear etiology, likely due to known peritoneal metastases Plan: Mr. Carrion is a very pleasant 66-year-old gentleman with a history of metastatic pancreatic cancer, on palliative chemotherapy, with increased nausea since he had restaging CT on 12/25/21 with decreased oral intake and constipation. CT of the abdomen and pelvis revealing new ascites and omental thickening, cannot rule out early metastases. He has known peritoneal metastases based on attempted pancreatic cancer resection, went to the OR and was found to have peritoneal metastases and surgery was aborted. Current symptoms concerning for gastric outlet obstruction versus gastroparesis. Surgery on board and he is being treated conservatively with the plan of EGD once his stomach is decompressed. Agree with surgery recommendations. No clear evidence of metastatic disease however imaging is highly suspicious for recurrent disease. Nausea management, much improved after NG tube was placed. He is however having abdominal discomfort with swallowing. Will obtain x-ray to ensure NG tube placement appropriate and we EGD to rule out possible ulceration contributing to this abdominal pain. Discussed with patient and is agreeable to the plan. All of his questions were answered. Discussed with nursing staff.
--- NOTE | 2022-01-03 19:24 | XR ---
EXAMINATION TYPE: XR abdomen 1V DATE OF EXAM: 01/03/2022 COMPARISON: NONE HISTORY: Tube placement TECHNIQUE: FINDINGS: There is nasogastric tube and the tip is over the gastric fundus. Bowel gas pattern appears nonacute. IMPRESSION: NG tube is in the stomach.
[2022-01-03 20:20] LABS: Glucose,Whole Blood 120 mg/dL (70-110)
--- NOTE | 2022-01-04 07:29 | XR ---
EXAMINATION TYPE: XR abdomen 2V DATE OF EXAM: 01/04/2022 7:23 AM INDICATION: Patient age:Male; 66 years old; Reason for study: Gastric distention; PHH. COMPARISON: CT abdomen and pelvis 01/02/2022, abdominal radiograph 01/03/2022 TECHNIQUE: Two views of the abdomen were obtained. FINDINGS: The bowel gas pattern is nonspecific without dilated loops of small or large bowel. Large a mount high density stool seen in the right colon. There is no evidence for organomegaly or pneumoperi toneum. The osseous structures are intact. No abnormal calcifications are present. Fecal material a nd gas are demonstrated throughout the colon and rectum. Nasogastric tube with distal tip and side-port in appropriate position. IMPRESSION: Nonspecific bowel gas pattern with a large stool burden in the right colon.
[2022-01-04 07:55] LABS: Glucose,Whole Blood 135 mg/dL (70-110)
[2022-01-04] MEDS: MULTIVITAMINS, THERA 1 EACH TAB PO SCH (08:16)
[2022-01-04] MEDS: INSULIN ASPART (NovoLOG) 100 UNIT/ML VIAL SQ SCH ×4 (08:16→21:04)
[2022-01-04] MEDS: ENOXAPARIN 40 MG/0.4 ML SYRINGE SQ SCH (08:16)
[2022-01-04] MEDS: VIT A,C & E-LUTEIN-MINERALS 1 EACH TAB PO SCH (08:17)
--- NOTE | 2022-01-04 11:43 | P.PN ---
Subjective Progress Note Date: 01/04/22 Principal diagnosis: Gastric outlet obstruction Patient feels better today. Between the time of placement of the nasogastric tube and now he has had 2.8 L out. Apparently had 2 L out in a very short time after nasogastric tube placement. This has resulted in resolution of his upper abdominal discomfort and fullness. NG tube aspirate dark brown in color Objective - Vital Signs Vital signs: Vital Signs Temp 98.3 F 01/04/22 05:03 Pulse 68 01/04/22 08:30 Resp 16 01/04/22 08:30 BP 133/67 01/04/22 08:28 Pulse Ox 97 01/04/22 05:03 FiO2 Intake & Output 01/03/22 01/04/22 01/04/22 18:59 06:59 18:59 Intake Total 900 Output Total 3000 800 Balance -2100 -800 Weight 76 kg Intake: Intake, IV Titration 900 Amount Sodium Chloride 0.9% 1, 900 000 ml @ 75 mls/hr IV . [id number] [facility] Rx#:[id number] Oral 0 Output: Gastric Drainage 3000 800 Other: Voiding Method Toilet Toilet Toilet - Exam Abdomen: Soft, nontender, nondistended - Labs CBC & Chem 7: 01/02/22 17:41 01/02/22 17:41 Labs: Abnormal Lab Results - Last 24 Hours (Table) 01/02/22 01/03/22 01/03/22 Range/Units 17:41 12:55 17:29 POC Glucose (mg/dL) 161 H 142 H (70-110) mg/dL Hemoglobin A1c 6.5 H (0.0-6.0) % 01/03/22 01/04/22 Range/Units 20:17 07:54 POC Glucose (mg/dL) 120 H 135 H (70-110) mg/dL Hemoglobin A1c (0.0-6.0) % Assessment and Plan (1) Gastric distention Narrative/Plan: 66-year-old male with suspected gastric outlet obstruction from advanced pancreatic cancer. Will order upper GI to be performed through the nasogastric tube tomorrow. May have ice chips and popsicles sparingly. Current Visit: Yes Status: Acute Code(s): K31.89 - OTHER DISEASES OF STOMACH AND DUODENUM SNOMED Code(s): 726470409
--- NOTE | 2022-01-04 11:47 | P.PN ---
Subjective Progress Note Date: 01/04/22 Patient still has significant output from NGT. Pending complete decompression of gastrum, then EGD. Gen: awake, alert, cachectic HEENT: normocephalic, atraumatic, good hearing acuity, moist mucous membranes Resp: good air exchange, breathing comfortably with no accessory muscle use CVS: good distal perfusion x 4, GI: soft, NTTP, ND : no SPT, no CVAT, wood catheter not present MSK: no pitting edema, no clubbing Neuro: non-focal, moving all extremities Psych: cooperative, euthymic mood Assessment/plan: Gastric outlet obstruction -Admit to inpatient -Surgery consult -NG tube -Nutrition consult for consideration of TPN -Nausea control -IV fluids Metastatic pancreatic cancer Ascites, likely malignant -Oncology consult -Symptomatic management Diabetes -Low-dose insulin sliding scale Patient is DO NOT RESUSCITATE/DO NOT INTUBATE DVT prophylaxis with enoxaparin Objective - Vital Signs Vital signs: Vital Signs Temp 98.3 F 01/04/22 05:03 Pulse 68 01/04/22 08:30 Resp 16 01/04/22 08:30 BP 133/67 01/04/22 08:28 Pulse Ox 97 01/04/22 05:03 FiO2 Intake & Output 01/03/22 01/04/22 01/04/22 18:59 06:59 18:59 Intake Total 900 Output Total 3000 800 Balance -2100 -800 Weight 76 kg Intake: Intake, IV Titration 900 Amount Sodium Chloride 0.9% 1, 900 000 ml @ 75 mls/hr IV . [id number] [facility] Rx#:[id number] Oral 0 Output: Gastric Drainage 3000 800 Other: Voiding Method Toilet Toilet Toilet - Labs CBC & Chem 7: 01/02/22 17:41 01/02/22 17:41 Labs: Abnormal Lab Results - Last 24 Hours (Table) 01/02/22 01/03/22 01/03/22 Range/Units 17:41 12:55 17:29 POC Glucose (mg/dL) 161 H 142 H (70-110) mg/dL Hemoglobin A1c 6.5 H (0.0-6.0) % 01/03/22 01/04/22 Range/Units 20:17 07:54 POC Glucose (mg/dL) 120 H 135 H (70-110) mg/dL Hemoglobin A1c (0.0-6.0) %
[2022-01-04 11:53] LABS: Glucose,Whole Blood 138 mg/dL (70-110)
[2022-01-04] MEDS: SODIUM CHLORIDE 0.9% 1,000 ML IV SCH ×2 (15:11→21:18)
[2022-01-04 18:07] LABS: Glucose,Whole Blood 136 mg/dL (70-110)
[2022-01-04 20:34] LABS: Glucose,Whole Blood 129 mg/dL (70-110)
[2022-01-05 07:17] LABS: Glucose,Whole Blood 141 mg/dL (70-110)
[2022-01-05] MEDS: VIT A,C & E-LUTEIN-MINERALS 1 EACH TAB PO SCH (09:14)
[2022-01-05] MEDS: MULTIVITAMINS, THERA 1 EACH TAB PO SCH (09:14)
[2022-01-05] MEDS: ENOXAPARIN 40 MG/0.4 ML SYRINGE SQ SCH (09:28)
[2022-01-05 09:33] LABS: Basophils % (A) 0 %; Eosinophils # (A) 0.1 k/uL (0-0.7); Eosinophils % (A) 1 %; HCT 48.3 % (39.0-53.0); HGB 15.1 gm/dL (13.0-17.5); Lymphocytes # (A) 1.1 k/uL (1.0-4.8); Lymphocytes % (A) 10 %; MCH 29.7 pg (25.0-35.0); MCHC 31.3 g/dL (31.0-37.0); MCV 94.8 fL (80.0-100.0); Mean Platelet Volume 8.3; Monocytes # (A) 0.4 k/uL (0-1.0); Monocytes % (A) 4 %; Neutrophils # (A) 8.7 k/uL (1.3-7.7); Neutrophils % (A) 84 %; Platelet Count 159 k/uL (150-450); RDW 15.6 % (11.5-15.5); WBC 10.3 k/uL (3.8-10.6)
[2022-01-05] MEDS: SODIUM CHLORIDE 0.9% 1,000 ML IV SCH (09:36)
[2022-01-05 09:52] LABS: African American GFR (CKD) >90 (>60 ml/min/1.73 sqM); Anion Gap 10 mmol/L; Blood Urea Nitrogen 23 mg/dL (9-20); Carbon Dioxide 35 mmol/L (22-30); Chloride 100 mmol/L (98-107); Glucose 139 mg/dL (74-99); Non-African American GFR(CKD) >90 (>60 ml/min/1.73 sqM); Potassium 3.5 mmol/L (3.5-5.1); Sodium 145 mmol/L (137-145)
--- NOTE | 2022-01-05 09:52 | FL ---
EXAMINATION TYPE: FL UGI DATE OF EXAM: 01/05/2022 COMPARISON: NONE HISTORY: Gastric outlet obstruction TECHNIQUE: A limited single contrast upper GI was performed following the injection of approximately 150 mL's of Isovue 370 via the patient's NG tube. 4 minutes and 40 seconds of fluoroscopic time was u tilized. The esophagus is not evaluated. Examination is limited by patient's NG tube and limited distention. There is the suggestion of irregu larity involving the gastric pyloris. Contrast is noted to exit into the duodenum with contrast withi n the proximal jejunum. The duodenal bulb, sweep, and proximal small bowel loops are unremarkable. IMPRESSION: Limited study. There is irregularity involving the distal pylorus. Underlying mass is dif ficult to exclude. As noted contrast is noted flow into the duodenum in a limited amount. Partial gas tric outlet obstruction difficult to exclude. Consider direct visualization.
[2022-01-05] MEDS: INSULIN ASPART (NovoLOG) 100 UNIT/ML VIAL SQ SCH ×4 (10:09→21:38)
--- NOTE | 2022-01-05 10:22 | P.PN ---
Subjective Progress Note Date: 01/05/22 CHIEF COMPLAINT: Gastric outlet obstruction HISTORY OF PRESENT ILLNESS: Patient sitting up in bed comfortably. He has NG tube in place. He had 3350ml out to the NG tube through the night and 800ml out this morning. Patient reports decrease in the fullness that he was experiencing. He denies any nausea. He is having flatus. Denies any abdominal pain. Patient had upper GI completed this morning. Results show a limited study. There is irregularity involving the distal pylorus. Underlying mass is difficult to exclude. As noted contrast is noted to flow into the duodenum and a limited amount partial gastric outlet obstruction difficult to exclude. Consider direct visualization. Afebrile. WBC is 10.3 Hgb 15.1 platelets 159 sodium is 145 potassium 3.5 creatinine 0.59 PHYSICAL EXAM: VITAL SIGNS: Reviewed. GENERAL: Well-developed in no acute distress. HEENT: No sclera icterus. Extraocular movements grossly intact. Moist buccal mucosa. Head is atraumatic, normocephalic. ABDOMEN: Soft. Nondistended. Nontender. NEUROLOGIC: Alert and oriented. Cranial nerves II through XII grossly intact. ASSESSMENT: 1. Suspected gastric outlet obstruction secondary to advanced pancreatic cancer PLAN: -Continue NG tube for decompression -Keep patient nothing by mouth except ice chips and popsicles -Continue IV fluids -Further recommendations forthcoming per surgeon Physician Hedis Review Nurse note has been reviewed by physician. Signing provider agrees with the documented findings, assessment, and plan of care. I have personally seen and examined the patient, reviewed the HOUSING MANAGER /PAs history, exam and MDM and agree with the assessment and plan as written. Based on total visit time, I have performed more than 50% of the visit. As above: Upper GI results noted. Options discussed again with the family and patient. We'll proceed with upper endoscopy tomorrow. Objective - Vital Signs Vital signs: Vital Signs Temp 98.5 F 01/05/22 04:13 Pulse 61 01/05/22 04:13 Resp 15 01/05/22 04:13 BP 156/74 01/05/22 04:13 Pulse Ox 98 01/05/22 04:13 FiO2 Intake & Output 01/04/22 01/05/22 01/05/22 18:59 06:59 18:59 Intake Total 360 400 Output Total 2400 1750 Balance -2040 -1350 Intake: Oral 360 400 Output: Gastric Drainage 2400 1750 Other: Voiding Method Toilet Toilet Toilet # Voids 4 1 - Labs CBC & Chem 7: 01/05/22 09:20 01/05/22 09:20 Labs: Abnormal Lab Results - Last 24 Hours (Table) 01/04/22 01/04/22 01/04/22 Range/Units 11:52 18:06 20:32 RDW (11.5-15.5) % Neutrophils # (1.3-7.7) k/uL Carbon Dioxide (22-30) mmol/L BUN (9-20) mg/dL Creatinine (0.66-1.25) mg/dL Glucose (74-99) mg/dL POC Glucose (mg/dL) 138 H 136 H 129 H (70-110) mg/dL 01/05/22 01/05/22 01/05/22 Range/Units 07:15 09:20 09:20 RDW 15.6 H (11.5-15.5) % Neutrophils # 8.7 H (1.3-7.7) k/uL Carbon Dioxide 35 H (22-30) mmol/L BUN 23 H (9-20) mg/dL Creatinine 0.59 L (0.66-1.25) mg/dL Glucose 139 H (74-99) mg/dL POC Glucose (mg/dL) 141 H (70-110) mg/dL
[2022-01-05] MEDS: DEXTROSE 5%-0.45% NACL 1,000 ML IV SCH ×2 (10:25→18:53)
[2022-01-05] MEDS ORDERED: NON FORMULARY DRUG (Dulaglutide [Trulicity] 0.75 MG/0.5 ML Each) SQ SCH (11:00)
[2022-01-05 11:28] LABS: Glucose,Whole Blood 172 mg/dL (70-110)
[2022-01-05 17:23] LABS: Glucose,Whole Blood 155 mg/dL (70-110)
--- NOTE | 2022-01-05 17:56 | P.PN ---
Subjective Progress Note Date: 01/05/22 Principal diagnosis: Metastatic Pancreatic Cancer NG tube LIS, No BM, No Nausea or cominiting Objective - Vital Signs Vital signs: Vital Signs Temp 98.6 F 01/05/22 11:31 Pulse 57 L 01/05/22 11:31 Resp 16 01/05/22 11:31 BP 145/72 01/05/22 11:31 Pulse Ox 98 01/05/22 11:31 FiO2 Intake & Output 01/04/22 01/05/22 01/05/22 18:59 06:59 18:59 Intake Total 360 400 Output Total 2400 1750 1600 Balance -[id number] Weight 76 kg Intake: Oral 360 400 Output: Gastric Drainage 2400 1750 1600 Other: Voiding Method Toilet Toilet Toilet # Voids 4 1 - Exam Gen: NAD HEENT: No conjunctival pallor or scleral icterus. Mucosa moist. NG tube in place. Neck: Supple Lungs: No respiratory distress Heart: Regular rate Abd: Soft, nontenderhypoBS MSK: appropriate strength Neuro: Alert and oriented x3 Skin: No jaundice Psych: Appropriate affect - Labs CBC & Chem 7: 01/05/22 09:20 01/05/22 09:20 Labs: Abnormal Lab Results - Last 24 Hours (Table) 01/04/22 01/04/22 01/05/22 Range/Units 18:06 20:32 07:15 RDW (11.5-15.5) % Neutrophils # (1.3-7.7) k/uL Carbon Dioxide (22-30) mmol/L BUN (9-20) mg/dL Creatinine (0.66-1.25) mg/dL Glucose (74-99) mg/dL POC Glucose (mg/dL) 136 H 129 H 141 H (70-110) mg/dL 01/05/22 01/05/22 01/05/22 Range/Units 09:20 09:20 11:22 RDW 15.6 H (11.5-15.5) % Neutrophils # 8.7 H (1.3-7.7) k/uL Carbon Dioxide 35 H (22-30) mmol/L BUN 23 H (9-20) mg/dL Creatinine 0.59 L (0.66-1.25) mg/dL Glucose 139 H (74-99) mg/dL POC Glucose (mg/dL) 172 H (70-110) mg/dL 01/05/22 Range/Units 17:19 RDW (11.5-15.5) % Neutrophils # (1.3-7.7) k/uL Carbon Dioxide (22-30) mmol/L BUN (9-20) mg/dL Creatinine (0.66-1.25) mg/dL Glucose (74-99) mg/dL POC Glucose (mg/dL) 155 H (70-110) mg/dL Assessment and Plan Plan: CT scan - abdomen: report reviewed CT scan - pelvis: report reviewed Assessment and Plan Assessment: 1. Metastatic pancreatic cancer 2. Intractable nausea - Improved - NG tube in place LIS - NO BM - Gen Surg FOllowinf 3. Gastric outlet obstruction vs gastroparesis 4. New ascites 5. Omental thickening, unclear etiology, likely due to known peritoneal metastases CT on 12/25/21 with decreased oral intake and constipation. CT of the abdomen and pelvis revealing new ascites and omental thickening, cannot rule out early metastases. He has known peritoneal metastases based on attempted pancreatic cancer resectio n, went to the OR and was found to have peritoneal metastases and surgery was aborted. Current symptoms concerning for gastric outlet obstruction versus gastroparesis. These are imprtoved today but still hpoactive Surgery on board and he is being treated conservatively with the plan of EGD onc e his stomach is decompressed. Agree with surgery recommendations. Dr. Temple: I have completed the full history and physical and developed the above impression and plan , agree with dictation, dictated as a scribe
[2022-01-05 20:51] LABS: Glucose,Whole Blood 165 mg/dL (70-110)
--- NOTE | 2022-01-05 21:08 | P.PN ---
Progress Note - Text Progress Note Date: 01/05/22 Hospital course: Mr. Carrion is a very pleasant 66-year-old gentleman with a history of metastatic pancreatic cancer, follows with Dr. Lombardo, with a known peritoneal metastases, on palliative chemotherapy, who is here for feeling ill after having a restaging computed tomography scan done on 12/25/21. He was having increasing nausea which brought him to the hospital. He has been constipated for a couple weeks now but continues to pass gas. Decreased appetite and oral intake for the past few d ays. CT from 12/25/21 did reveal resolution of the subtle soft tissue fullness was previously seen in the body of the pancreas with slightly increased progression in the pancreatic tail. Post radiation and treatment changes seen in the main portal vein and portal venous confluence. Peritoneal changes were described as omental soft tissue thickening with additional lower quadrant mesenteric thickening that is nonspecific, cannot rule out early metastatic disease, as well as new mild to moderate ascites. He also had a new 3.97 L soft tissue thickening at the gastric antrum of unclear etiology. In the ER he had repeat computed tomography scan of the abdomen and pelvis which again showed ascites, mostly around the liver, that had significantly increased and increased dilated stomach due to gastroparesis or gastric outlet obstruction. He was admitted and evaluated by surgery, with plan of upper GI once stomach was decompressed with NG tube. Admitted with gastric outlet obstruction. January 05:. I resumed care of the patient from [facility]. Reclining in bed. NG tube. Somewhat bloody. Upper GI completed this morning. Showing gastric or renal obstruction with irregularity in the pylorus. Discussed with Dr. Bobo. Follow EEG tomorrow. He spoke to the patient and the daughter. Some abdominal discomfort. Nothing by mouth. Active Medications Acetaminophen (Acetaminophen Tab 325 Mg Tab) 650 mg PO Q6HR PRN PRN Reason: Mild Pain or Fever > 100.5 Dextrose/Water (Dextrose 50% Syringe 50 Ml) 25 ml IVP PER PROTOCOL PRN; Protocol PRN Reason: Hypoglycemia Dextrose/Water (Dextrose 50% Syringe 50 Ml) 50 ml IVP PER PROTOCOL PRN; Protocol PRN Reason: Hypoglycemia Docusate Sodium (Docusate 100 Mg Cap) 100 mg PO BID PRN PRN Reason: Constipation Enoxaparin Sodium (Enoxaparin 40 Mg/0.4 Ml Syringe) 40 mg SQ DAILY [facility] Last Admin: 01/05/22 09:28 Dose: 40 mg Dextrose/Sodium Chloride (Dextrose 5%-1/2ns Iv Soln) 1,000 mls @ 100 mls/hr IV .Q10H [facility] Last Admin: 01/05/22 18:53 Dose: 100 mls/hr Insulin Aspart (Insulin Aspart (Novolog) 100 Unit/Ml Vial) 0 unit SQ ACHS [facility]; Protocol Last Admin: 01/05/22 18:15 Dose: Not Given Mirtazapine (Mirtazapine 15 Mg Tab) 15 mg PO HS PRN PRN Reason: SLEEP Multivitamins (Multivitamins, Thera 1 Each Tab) 1 each PO DAILY [facility] [place] Last Admin: 01/05/22 09:14 Dose: Not Given Multivitamins/Minerals (Vit A,C & G-Lchyfq-Tmcbzibr 1 Each Tab) 1 each PO DAILY [facility] [place] Last Admin: 01/05/22 09:14 Dose: Not Given Naloxone HCl (Naloxone 0.4 Mg/Ml 1 Ml Vial) 0.2 mg IV Q2M PRN PRN Reason: Opioid Reversal Non-Formulary Medication (Dulaglutide [Trulicity]) 0.75 mg SQ WEEKLY [facility] [place] Last Admin: 01/05/22 10:24 Dose: 0.75 mg Ondansetron HCl (Ondansetron 4 Mg/2 Ml Vial) 4 mg IVP Q8HR PRN PRN Reason: Nausea And Vomiting Last Admin: 01/02/22 20:47 Dose: 4 mg On examination: VITAL SIGNS: [98, 53, 16, 140/69, 97% room air] GENERAL APPEARANCE: Thin built, laying in bed, but uncomfortable HEENT: NG tube to suction. Dry mucous membrane EYES: Pupils equal. Conjunctiva pale NECK: JVD not raised. Mass not palpable. RESPIRATORY: Respiratory effort normal. Lungs decreased breath sounds CARDIOVASCULAR: First and second sounds normal. No edema. ABDOMEN: Soft. Some distention. Upper abdominal tenderness. Liver and spleen not palpable. . PSYCHIATRY: Alert and oriented x3. Mood and affect bit anxious. INVESTIGATIONS, reviewed in the clinical context: White count 10.3 hemoglobin 15.1 platelets 159 progression 3.5 BUN 23 creatinine 0.59 Fluoroscopy upper GI [January 05]: Irregularity involving the distal pylorus. Limited amount of contrast in the duodenum. CT abdomen pelvis: Abdominal ascites. Mainly around the liver. Increased from recent exam. Dilated stomach. Assessment and plan: -Strongly suspicious for gastric outlet obstruction secondary to metastatic disease from pancreatic cancer: Not improving NG tube to suction to continue. EGD tomorrow by Dr. Bobo. -Metastatic pancreatic cancer: Advanced Under care of Dr. Lombardo. Palliative treatment. Attempted pancreatic cancer resection, in the OR was found to have peritoneal metastatic the surgery was aborted -Chronic nicotine dependence, cigarette smoker -Diabetes mellitus type 2 Trulicity weekly. -Secondary peritoneal ascites due to pancreatic cancer/peritoneal metastasis: Not improving palliative paracentesis as needed -DO NOT RESUSCITATE Clinically dehydrated. Start D5 0.45. Will DC subcu Lovenox due to the mid bloody nature of the NG tube aspirate. Pending EGD tomorrow. Discussed with the patient and Dr. Bobo.
[2022-01-06 07:24] LABS: Glucose,Whole Blood 147 mg/dL (70-110)
[2022-01-06] MEDS: INSULIN ASPART (NovoLOG) 100 UNIT/ML VIAL SQ SCH ×4 (08:03→20:25)
[2022-01-06] MEDS: DEXTROSE 5%-0.45% NACL 1,000 ML IV SCH ×2 (08:31→14:00)
[2022-01-06] MEDS: MULTIVITAMINS, THERA 1 EACH TAB PO SCH (09:18)
[2022-01-06] MEDS: VIT A,C & E-LUTEIN-MINERALS 1 EACH TAB PO SCH (09:18)
[2022-01-06 11:16] LABS: Glucose,Whole Blood 147 mg/dL (70-110)
--- NOTE | 2022-01-06 11:56 | CDI ---
Documentation Clarification Form Date: 01/06/2022 11:33:12 AM From: Rose Marie Ramsey RN CCDS Admit Date: 01/02/2022 07:41:00 PM Patient Name: Raheel Carrion Visit Number: [id number] Discharge Date: ATTENTION: The Clinical Documentation Specialists (CDI) and [facility] Coding Staff appreciate your assistance in clarifying documentation. Please respond to the clarification below the line at the bottom and electronically sign. The CDI & [facility] Coding staff will review the response and follow-up if needed. Please note: Queries are made part of the Legal Health Record. If you have any questions, please contact the author of this message via ITS. Dr. Carlo Sweeney The patient is being described cachectic in medicine progress notes, 01/04 & 01/05. Based on this information and the findings below, is there an additional diagnosis that is clinically appropriate for this patient? History/Risk Factors: 66-year-old female presents to the ED with nausea and no bowel movement for two weeks, passing gas and unable to eat the last five days with emesis even with water. Medical History: Chemotherapy November 26, 2021; DM with Pancreatic cancer. Clinical Indicators: RD Consult Assessment: Current BMI: 21.5kg/m; Hgt 6ft 2in; Wgt 76kg; Calculated [place] body weight 86.3kg Insufficient energy intake: Underfeeding: patient states he hasnt eaten in 5 days, no BM x 2 weeks prior to admission. Weight Loss: has had slow steady weight loss; unsure of time frame or how much. Calculated Energy needs using current weight: 2090Kcal. Estimated Protein needs using ideal body weight: Estimated protein range 1.0 grams/kg. Estimated Protein needs 86 grams/day. Estimated fluid needs 1ml/Kcal Estimated Fluid 2090 needs mls/day Inadequate energy intake: related to decreased appetite with chemotherapy. As evidenced by not eating x 5 days [employer]: current NPO diet. Nutritional intervention goals, Tolerate PO diet by discharge, transition to PO nutrition. Treatment: Dietary Consult: see above Monitor PO, diet advancement willingness to accept supplements upon diet advancement Is there an additional diagnosis that is clinically appropriate for this patient? [ ] Mild Protein-Calorie Malnutrition [ ] Moderate Protein-Calorie Malnutrition [ ] Other condition, please specify [ ] Unable to Determine (Template Last Revised: July 2020) Mild protein calorie malnutrition from decreased oral intake MTDD
[2022-01-06] MEDS ORDERED: IV FLUID CONTINUATION 1,000 ML IV ONE (12:31)
[2022-01-06] MEDS ORDERED: PROPOFOL 10 MG/ML 20 ML VIAL IV ONE (12:32)
--- NOTE | 2022-01-06 13:21 | P.PCN ---
Date of Procedure: 01/06/22 Procedure(s) Performed: Preoperative Dx: intractable vomiting, possible gastric outlet obstruction Postoperative Dx: deformity in the antrum and pylorus causing partial obstruction, gastritis, esophagitis Procedure: EGD with Bx Anesthesia: Sedation Endoscopist: Dr. Cochran Specimens: pyloric region, gastritis in body of stomach, esophagus Endoscopic Procedure: The patient was on the endoscopy table in the left decubitus position. The Olympus gastroscope was inserted into the oropharynx and passed under direct visualization to the distal aspect of the stomach. The patient had gastritis present but this was thought to be related to the indwelling nasogastric tube. In the antrum and pylorus there was a deformity causing some partial obstruction. The scope was able to be navigated through that area however into the duodenum and I could pass the scope to the distal third portion of the duodenum without difficulties. The duodenum itself appeared normal. A biopsy of the deformity and the pyloric and antral region took place. The patient had gastritis in the body of the stomach that was also biopsied. No hiatal hernia was seen. The patient's esophagus had circumferential inflammatory changes again likely related to the indwelling nasogastric tube. Biopsies of the esophagus took place as well. Recommendations: endoscopic findings discussed with patient's family. We'll discuss with patient as he is more awake. Patient could benefit potentially from distal gastric stent placement across the antral and pyloric region. Will discuss possible transfer with patient.
--- NOTE | 2022-01-06 15:52 | P.PN ---
Progress Note - Text Progress Note Date: 01/06/22 Endoscopic findings again discussed with the patient and his family at the bedside. Apparently the family members have already discussed his case with his pancreatic surgeon at [facility]. They do not feel that stent placement will benefit the patient at this time which I likely is an accurate assessment. Patient is not interested in transfer at this time. His pancreatic surgeon is suggesting PEG tube for drainage and palliative reasons. Patient would like to proceed with an EGD and PEG tube placement. Patient understands this will not be utilized for feedings but for drainage only. Patient states he is considering hospice care at this time. We'll proceed with EGD and PEG tube placement tomorrow at noon.
--- NOTE | 2022-01-06 17:25 | P.PN ---
Progress Note - Text Progress Note Date: 01/06/22 Hospital course: Mr. Carrion is a very pleasant 66-year-old gentleman with a history of metastatic pancreatic cancer, follows with Dr. Lombardo, with a known peritoneal metastases, on palliative chemotherapy, who is here for feeling ill after having a restaging computed tomography scan done on 12/25/21. He was having increasing nausea which brought him to the hospital. He has been constipated for a couple weeks now but continues to pass gas. Decreased appetite and oral intake for the past few d ays. CT from 12/25/21 did reveal resolution of the subtle soft tissue fullness was previously seen in the body of the pancreas with slightly increased progression in the pancreatic tail. Post radiation and treatment changes seen in the main portal vein and portal venous confluence. Peritoneal changes were described as omental soft tissue thickening with additional lower quadrant mesenteric thickening that is nonspecific, cannot rule out early metastatic disease, as well as new mild to moderate ascites. He also had a new 3.97 L soft tissue thickening at the gastric antrum of unclear etiology. In the ER he had repeat computed tomography scan of the abdomen and pelvis which again showed ascites, mostly around the liver, that had significantly increased and increased dilated stomach due to gastroparesis or gastric outlet obstruction. He was admitted and evaluated by surgery, with plan of upper GI once stomach was decompressed with NG tube. Admitted with gastric outlet obstruction. January 05:. I resumed care of the patient from [facility]. Reclining in bed. NG tube. Somewhat bloody. Upper GI completed this morning. Showing gastric or renal obstruction with irregularity in the pylorus. Discussed with Dr. Bobo. Follow EEG tomorrow. He spoke to the patient and the daughter. Some abdominal discomfort. Nothing by mouth. January 06: Patient was seen this morning. NG tube in place. Data this afternoon underwent endoscopy. Dr. Bobo called me to say that there was no obstruction but felt to be outside compression. He also informed be that family had already called the previous surgeon and at this point they're thinking of putting a drainage tube in the stomach and patient will go home with the same. Not a surgical candidate otherwise. This is being scheduled by Dr. Bobo. Active Medications Acetaminophen (Acetaminophen Tab 325 Mg Tab) 650 mg PO Q6HR PRN PRN Reason: Mild Pain or Fever > 100.5 Dextrose/Water (Dextrose 50% Syringe 50 Ml) 25 ml IVP PER PROTOCOL PRN; Protocol PRN Reason: Hypoglycemia Dextrose/Water (Dextrose 50% Syringe 50 Ml) 50 ml IVP PER PROTOCOL PRN; Protocol PRN Reason: Hypoglycemia Dextrose/Sodium Chloride (Dextrose 5%-1/2ns Iv Soln) 1,000 mls @ 100 mls/hr IV .Q10H [facility] Last Admin: 01/06/22 14:00 Dose: 100 mls/hr Insulin Aspart (Insulin Aspart (Novolog) 100 Unit/Ml Vial) 0 unit SQ ACHS [facility]; Protocol Last Admin: 01/06/22 11:19 Dose: Not Given Mirtazapine (Mirtazapine 15 Mg Tab) 15 mg PO HS PRN PRN Reason: SLEEP Multivitamins (Multivitamins, Thera 1 Each Tab) 1 each PO DAILY [facility] Last Admin: 01/06/22 09:18 Dose: 1 each Multivitamins/Minerals (Vit A,C & Q-Kndenp-Etyaecwo 1 Each Tab) 1 each PO DAILY [facility] Last Admin: 01/06/22 09:18 Dose: 1 each Naloxone HCl (Naloxone 0.4 Mg/Ml 1 Ml Vial) 0.2 mg IV Q2M PRN PRN Reason: Opioid Reversal Non-Formulary Medication (Dulaglutide [Trulicity]) 0.75 mg SQ WEEKLY [facility] Last Admin: 01/05/22 10:24 Dose: 0.75 mg Ondansetron HCl (Ondansetron 4 Mg/2 Ml Vial) 4 mg IVP Q8HR PRN PRN Reason: Nausea And Vomiting Last Admin: 01/02/22 20:47 Dose: 4 mg On examination: VITAL SIGNS: 98, 50, 16, 160/78, 98% room air GENERAL APPEARANCE: Thin built, reclining in chair HEENT: NG tube to suction. Dry mucous membrane EYES: Pupils equal. Conjunctiva pale NECK: JVD not raised. Mass not palpable. RESPIRATORY: Respiratory effort normal. Lungs decreased breath sounds CARDIOVASCULAR: First and second sounds normal. No edema. ABDOMEN: Soft. Some distention. Upper abdominal tenderness. Liver and spleen not palpable. . PSYCHIATRY: Alert and oriented x3. Mood and affect bit anxious. INVESTIGATIONS, reviewed in the clinical context: White count 10.3 hemoglobin 15.1 platelets 159 progression 3.5 BUN 23 creatinine 0.59 Fluoroscopy upper GI [January 05]: Irregularity involving the distal pylorus. Limited amount of contrast in the duodenum. CT abdomen pelvis: Abdominal ascites. Mainly around the liver. Increased from recent exam. Dilated stomach. Assessment and plan: -gastric outlet obstruction secondary to extrinsic compression metastatic disease from pancreatic cancer: Not improving NG tube to suction to continue. EGD on January 06 showed extensive compression. Further gastric drainage tube in place. -Metastatic pancreatic cancer: Advanced Under care of Dr. Lombardo. Palliative treatment. Attempted pancreatic cancer resection, in the OR was found to have peritoneal metastatic the surgery was aborted -Chronic nicotine dependence, cigarette smoker -Diabetes mellitus type 2 Trulicity weekly-will discontinue. -Secondary peritoneal ascites due to pancreatic cancer/peritoneal metastasis: Not improving palliative paracentesis as needed -DO NOT RESUSCITATE Patient to have a gastric drainage placed by Dr. Bobo tomorrow. Supportive care to continue. Prognosis remains guarded. Care was discussed thoroughly with the patient. And Dr. Bobo later. Continue IV fluids. Hospice care is being considered. We'll discuss further the patient. Time spent today about 40 minutes with over 25 minutes of discussion.
[2022-01-06 17:28] LABS: Glucose,Whole Blood 168 mg/dL (70-110)
[2022-01-06 20:14] LABS: Glucose,Whole Blood 162 mg/dL (70-110)
--- NOTE | 2022-01-06 22:29 | P.PN ---
Subjective Progress Note Date: 01/06/22 Principal diagnosis: Intractable nausea IN f/u today pt denies BM, small amt of flatus, not tolerating oral intake. Objective - Vital Signs Vital signs: Vital Signs Temp 98.0 F 01/06/22 11:13 Pulse 50 L 01/06/22 11:13 Resp 16 01/06/22 11:13 BP 160/78 01/06/22 11:13 Pulse Ox 98 01/06/22 11:13 FiO2 Intake & Output 01/05/22 01/06/22 01/06/22 18:59 06:59 18:59 Intake Total 400 100 Output Total 1600 500 700 Balance -1600 -100 -600 Weight 76 kg Intake: IV 100 Oral 400 Output: Gastric Drainage 1600 500 700 Other: Voiding Method Toilet Toilet Toilet # Voids 4 2 - Constitutional General appearance: Present: average body habitus, cooperative, no acute distress - EENT Eyes: Present: anicteric sclerae, EOMI ENT: Present: hearing grossly normal - Respiratory Respiratory: bilateral: CTA - Cardiovascular Rhythm: regular Heart sounds: normal: S1, S2 Abnormal Heart Sounds: Absent: systolic murmur, diastolic murmur, rub, S3 Gallop, S4 Gallop, click, other - Gastrointestinal General gastrointestinal: Present: decreased bowel sounds, distended, soft - Neurologic Neurologic: Present: CNII-XII intact - Musculoskeletal Musculoskeletal: Present: strength equal bilaterally - Psychiatric Psychiatric: Present: A&O x's 3, appropriate affect, intact judgment & insight - Labs CBC & Chem 7: 01/05/22 09:20 01/05/22 09:20 Labs: Abnormal Lab Results - Last 24 Hours (Table) 01/05/22 01/05/22 01/06/22 Range/Units 17:19 20:48 07:22 POC Glucose (mg/dL) 155 H 165 H 147 H (70-110) mg/dL 01/06/22 Range/Units 11:15 POC Glucose (mg/dL) 147 H (70-110) mg/dL - Imaging and Cardiology upper GI report reviewed Assessment and Plan (1) Gastric distention Current Visit: Yes Status: Acute Priority: High Code(s): K31.89 - OTHER DISEASES OF STOMACH AND DUODENUM SNOMED Code(s): 283715995 (2) Nausea Current Visit: Yes Status: Acute Priority: High Code(s): R11.0 - NAUSEA SNOMED Code(s): 318752401 (3) Pancreatic cancer Current Visit: No Status: Chronic Priority: High Code(s): C25.9 - MALIGNANT NEOPLASM OF PANCREAS, UNSPECIFIED SNOMED Code(s): 914465973 Plan: Upper GI did show some barium passing through so, pending direct visualization with EGD, later today. Cont antiemetics. Hold chemo for now attests: I have seen and examined pt, performed H&P, developed impression and plan of care. Discussed with dictator. Agree with dictation, documented as a scribe.
[2022-01-07] MEDS: DEXTROSE 5%-0.45% NACL 1,000 ML IV SCH ×3 (02:06→18:41)
[2022-01-07 07:18] LABS: Glucose,Whole Blood 153 mg/dL (70-110)
[2022-01-07] MEDS: INSULIN ASPART (NovoLOG) 100 UNIT/ML VIAL SQ SCH ×4 (08:20→20:27)
[2022-01-07] MEDS: VIT A,C & E-LUTEIN-MINERALS 1 EACH TAB PO SCH (08:22)
[2022-01-07] MEDS: MULTIVITAMINS, THERA 1 EACH TAB PO SCH (08:22)
[2022-01-07] MEDS ORDERED: LIDOCAINE 2% INJ 20 MG/ML (2 ML VIAL) ONE (12:10)
[2022-01-07] MEDS ORDERED: PROPOFOL 10 MG/ML 20 ML VIAL IV ONE (12:10)
[2022-01-07] MEDS ORDERED: IV FLUID CONTINUATION 700 ML IV ONE (12:25)
--- NOTE | 2022-01-07 13:00 | P.PCN ---
Date of Procedure: 01/07/22 Procedure(s) Performed: PREOPERATIVE DIAGNOSIS: Intractable vomiting POSTOPERATIVE DIAGNOSIS: Same PROCEDURE: EGD with PEG tube placement SURGEON: Sammie EBL: Minimal ANESTHESIA: Sedation COMPLICATIONS: None OPERATIVE PROCEDURE: The patient was placed in the supine position on the endoscopy table. The patient was sedated per anesthesia that time. The Olympus gastroscope was inserted into the oropharynx and passed under direct visualization to the distal stomach. The stomach was carefully inspected. The patient had gastritis and deformity of the distal aspect of the stomach. The stomach was fully insufflated with air. The abdominal wall was inspected. The light was seen shining through the abdominal wall in the left upper quadrant. This site was chosen for PEG tube placement. The area was prepped in the usual sterile fashion. This area was then localized with lidocaine. No air was evide nt when aspirating while advancing the localizing needle into the stomach until the stomach was reached. A small vertical incision was made using the scalpel. The Seldinger needle was advanced into the lumen of the stomach the wire was advanced. The wire was grasped with an endoscopic snare. The wire was pulled through the oropharynx. The catheter was then threaded over the guidewire and the guidewire and catheter were pulled anteriorly until the hub of the PEG tube catheter was seated against the anterior wall the stomach. The circular bolster was applied and tightened down. The endoscope was then readvanced into the stomach. There was no evidence of any bleeding and there was appropriate tightness on the bolster. The catheter was cut appropriately. The dual port feeding adapter was applied. DISPOSITION: Stable to recovery room
--- NOTE | 2022-01-07 15:33 | P.PN ---
Progress Note - Text Progress Note Date: 01/07/22 Hospital course: Mr. Carrion is a very pleasant 66-year-old gentleman with a history of metastatic pancreatic cancer, follows with Dr. Lombardo, with a known peritoneal metastases, on palliative chemotherapy, who is here for feeling ill after having a restaging computed tomography scan done on 12/25/21. He was having increasing nausea which brought him to the hospital. He has been constipated for a couple weeks now but continues to pass gas. Decreased appetite and oral intake for the past few d ays. CT from 12/25/21 did reveal resolution of the subtle soft tissue fullness was previously seen in the body of the pancreas with slightly increased progression in the pancreatic tail. Post radiation and treatment changes seen in the main portal vein and portal venous confluence. Peritoneal changes were described as omental soft tissue thickening with additional lower quadrant mesenteric thickening that is nonspecific, cannot rule out early metastatic disease, as well as new mild to moderate ascites. He also had a new 3.97 L soft tissue thickening at the gastric antrum of unclear etiology. In the ER he had repeat computed tomography scan of the abdomen and pelvis which again showed ascites, mostly around the liver, that had significantly increased and increased dilated stomach due to gastroparesis or gastric outlet obstruction. He was admitted and evaluated by surgery, with plan of upper GI once stomach was decompressed with NG tube. Admitted with gastric outlet obstruction. January 05:. I resumed care of the patient from [facility]. Reclining in bed. NG tube. Somewhat bloody. Upper GI completed this morning. Showing gastric or renal obstruction with irregularity in the pylorus. Discussed with Dr. Bobo. Follow EEG tomorrow. He spoke to the patient and the daughter. Some abdominal discomfort. Nothing by mouth. January 06: Patient was seen this morning. NG tube in place. Data this afternoon underwent endoscopy. Dr. Bobo called me to say that there was no obstruction but felt to be outside compression. He also informed be that family had already called the previous surgeon and at this point they're thinking of putting a drainage tube in the stomach and patient will go home with the same. Not a surgical candidate otherwise. This is being scheduled by Dr. Bobo. January 07: Patient was seen by me earlier today. Daughter is present. Lengthy discussion was had about hospice. Questions were answered. They're meeting with hospice this afternoon. Later on the also joint. No further questions. Spoke to Dr. Bobo this afternoon a PEG tube was placed. Will be used primarily for drainage. Active Medications Acetaminophen (Acetaminophen Tab 325 Mg Tab) 650 mg PO Q6HR PRN PRN Reason: Mild Pain or Fever > 100.5 Dextrose/Water (Dextrose 50% Syringe 50 Ml) 25 ml IVP PER PROTOCOL PRN; Protocol PRN Reason: Hypoglycemia Dextrose/Water (Dextrose 50% Syringe 50 Ml) 50 ml IVP PER PROTOCOL PRN; Protocol PRN Reason: Hypoglycemia Dextrose/Sodium Chloride (Dextrose 5%-1/2ns Iv Soln) 1,000 mls @ 100 mls/hr IV .Q10H [facility] Last Admin: 01/07/22 08:21 Dose: 100 mls/hr Insulin Aspart (Insulin Aspart (Novolog) 100 Unit/Ml Vial) 0 unit SQ ACHS MANNY; Protocol Last Admin: 01/07/22 12:09 Dose: Not Given Mirtazapine (Mirtazapine 15 Mg Tab) 15 mg PO HS PRN PRN Reason: SLEEP Multivitamins (Multivitamins, Thera 1 Each Tab) 1 each PO DAILY [facility] Last Admin: 01/07/22 08:22 Dose: Not Given Multivitamins/Minerals (Vit A,C & Y-Mkoziy-Mrmridsm 1 Each Tab) 1 each PO DAILY [facility] Last Admin: 01/07/22 08:22 Dose: Not Given Naloxone HCl (Naloxone 0.4 Mg/Ml 1 Ml Vial) 0.2 mg IV Q2M PRN PRN Reason: Opioid Reversal Non-Formulary Medication (Dulaglutide [Trulicity]) 0.75 mg SQ WEEKLY [facility] Last Admin: 01/05/22 10:24 Dose: 0.75 mg Ondansetron HCl (Ondansetron 4 Mg/2 Ml Vial) 4 mg IVP Q8HR PRN PRN Reason: Nausea And Vomiting Last Admin: 01/02/22 20:47 Dose: 4 mg On examination: VITAL SIGNS: 98.5, 55, 16, 149 this 83, 98% room air GENERAL APPEARANCE: , reclining in chair HEENT: NG tube to suction. Dry mucous membrane EYES: Pupils equal. Conjunctiva pale NECK: JVD not raised. Mass not palpable. RESPIRATORY: Respiratory effort normal. Lungs decreased breath sounds CARDIOVASCULAR: First and second sounds normal. No edema. ABDOMEN: Soft. Some distention. Upper abdominal tenderness. Liver and spleen not palpable. . PSYCHIATRY: Alert and oriented x3. Mood and affect bit anxious. INVESTIGATIONS, reviewed in the clinical context: White count 10.3 hemoglobin 15.1 platelets 159 progression 3.5 BUN 23 creatinine 0.59 Fluoroscopy upper GI [January 05]: Irregularity involving the distal pylorus. Limited amount of contrast in the duodenum. CT abdomen pelvis: Abdominal ascites. Mainly around the liver. Increased from recent exam. Dilated stomach. Assessment and plan: -gastric outlet obstruction secondary to extrinsic compression metastatic disease from pancreatic cancer: Not improving NG tube to suction to continue. EGD on January 06 showed extensive compression. PEG tube placed today for drainage -Metastatic pancreatic cancer: Advanced Under care of Dr. Lombardo. Palliative treatment. Attempted pancreatic cancer resection, in the OR was found to have peritoneal metastatic the surgery was aborted -Chronic nicotine dependence, cigarette smoker -Diabetes mellitus type 2 Trulicity weekly-will discontinue. -Secondary peritoneal ascites due to pancreatic cancer/peritoneal metastasis: Not improving palliative paracentesis as needed -DO NOT RESUSCITATE, hospice consulted Discussed with the patient daughter the bedside. This afternoon had a PEG tube placed. Only for drainage. Hospice will be meeting with the patient this afternoon. Questions answered. Discussed with Dr. Bobo. Total time spent today about 40 minutes with over 25 minutes of discussion.
[2022-01-07 17:30] LABS: Glucose,Whole Blood 150 mg/dL (70-110)
--- NOTE | 2022-01-07 17:33 | P.PN ---
Subjective Progress Note Date: 01/07/22 Principal diagnosis: Intractable nausea, metastatic pancreatic cancer IN f/u today pt still has an NG tube placed. He is discussed his situation with the Surgeon. He is going to have a tube placed for drainage of stomach contents and comfort. Patient is also decided that he would like to go home with hospice. Objective - Vital Signs Vital signs: Vital Signs Temp 98.5 F 01/07/22 14:18 Pulse 55 L 01/07/22 14:18 Resp 16 01/07/22 14:18 BP 149/83 01/07/22 14:18 Pulse Ox 98 01/07/22 14:18 FiO2 Intake & Output 01/06/22 01/07/22 01/07/22 18:59 06:59 18:59 Intake Total 850 1000 100 Output Total 1600 Balance -750 1000 100 Weight 76 kg Intake: IV 100 100 Intake, IV Titration 750 1000 Amount Dextrose 5%-0.45% NaCl 1, 750 1000 000 ml @ 100 mls/hr IV . Q10H MANNY Rx#:[id number] Output: Gastric Drainage 1600 Other: Voiding Method Toilet Toilet # Voids 3 1 - Exam well-developed, thin, no acute distress, NG tube in place, bilious contents in NG canister. - Labs CBC & Chem 7: 01/05/22 09:20 01/05/22 09:20 Labs: Abnormal Lab Results - Last 24 Hours (Table) 01/06/22 01/07/22 Range/Units 20:07 07:16 POC Glucose (mg/dL) 162 H 153 H (70-110) mg/dL Assessment and Plan (1) Gastric distention Current Visit: Yes Status: Acute Priority: High Code(s): K31.89 - OTHER DISEASES OF STOMACH AND DUODENUM SNOMED Code(s): 202060275 (2) Nausea Current Visit: Yes Status: Acute Priority: High Code(s): R11.0 - NAUSEA SNOMED Code(s): 061113998 (3) Pancreatic cancer Current Visit: No Status: Chronic Priority: High Code(s): C25.9 - MALIGNANT NEOPLASM OF PANCREAS, UNSPECIFIED SNOMED Code(s): 678521177 Plan: post procedure, surgeon did discuss with patient has findings. Based on visualization of the area, most likely progressive disease. This is going to be affecting stomach in the ability of the stomach to move. Stent was offered but, patient states he would rather be kept comfortable. Surgeon is going to place a J-tube for comfort draining of the stomach. Patient is going to be going home with hospice. He discussed his situation with Dr. Ellis. Hospice is certainly a reasonable treatment option. attests: I have seen and examined pt, performed H&P, developed impression and plan of care. Discussed with dictator. Agree with dictation, documented as a scribe. Time with Patient: Greater than 30
[2022-01-07 20:32] LABS: Glucose,Whole Blood 158 mg/dL (70-110)
[2022-01-08 05:09] VITALS: BP 145/75; PULSE 62; RESP 15; TEMP 98.6
[2022-01-08 07:26] LABS: Glucose,Whole Blood 149 mg/dL (70-110)
[2022-01-08] MEDS: INSULIN ASPART (NovoLOG) 100 UNIT/ML VIAL SQ SCH (08:23)
[2022-01-08] MEDS: VIT A,C & E-LUTEIN-MINERALS 1 EACH TAB PO SCH (08:27)
[2022-01-08] MEDS: MULTIVITAMINS, THERA 1 EACH TAB PO SCH (08:27)
[2022-01-08] MEDS: DEXTROSE 5%-0.45% NACL 1,000 ML IV SCH (11:00)
--- NOTE | 2022-01-08 16:54 | P.DS ---
Providers Date of admission: 01/02/22 19:41 Expected date of discharge: 01/08/22 Attending physician: Carlo Sweeney Consults: 01/02/22 19:38 Consult Physician Routine Consulting Provider: Rock Lombardo Consult Reason/Comments: pancreatic cancer Do you want consulting provider notified?: Yes 01/03/22 07:50 Consult Physician Routine Consulting Provider: Antonio Cochran Consult Reason/Comments: gastric outlet obstruction Do you want consulting provider notified?: Yes [facility] Course: Hospital course: Mr. Carrion is a very pleasant 66-year-old gentleman with a history of metastatic pancreatic cancer, follows with Dr. Lombardo, with a known peritoneal metastases, on palliative chemotherapy, who is here for feeling ill after having a restaging computed tomography scan done on 12/25/21. He was having increasing nausea which brought him to the hospital. He has been constipated for a couple weeks now but continues to pass gas. Decreased appetite and oral intake for the past few days. CT from 12/25/21 did reveal resolution of the subtle soft tissue fullness was previously seen in the body of the pancreas with slightly increased progression in the pancreatic tail. Post radiation and treatment changes seen in the main portal vein and portal venous confluence. Peritoneal changes were described as omental soft tissue thickening with additional lower quadrant mesenteric thickening that is nonspecific, cannot rule out early metastatic disease, as well as new mild to moderate ascites. He also had a new 3.97 L soft tissue thickening at the gastric antrum of unclear etiology. In the ER he had repeat computed tomography scan of the abdomen and pelvis which again showed ascites, mostly around the liver, that had significantly increased and increased dilated stomach due to gastroparesis or gastric outlet obstruction. He was admitted and evaluated by surgery, with plan of upper GI once stomach was decompressed with NG tube. Admitted with gastric outlet obstruction. January 05:. I resumed care of the patient from [facility]. Reclining in bed. NG tube. Somewhat bloody. Upper GI completed this morning. Showing gastric or renal obstruction with irregularity in the pylorus. Discussed with Dr. Bobo. Follow EEG tomorrow. He spoke to the patient and the daughter. Some abdominal discomfort. Nothing by mouth. January 06: Patient was seen this morning. NG tube in place. Data this afternoon underwent endoscopy. Dr. Bobo called me to say that there was no obstruction but felt to be outside compression. He also informed be that family had already called the previous surgeon and at this point they're thinking of putting a drainage tube in the stomach and patient will go home with the same. Not a surgical candidate otherwise. This is being scheduled by Dr. Bobo. January 07: Patient was seen by me earlier today. Daughter is present. Lengthy discussion was had about hospice. Questions were answered. They're meeting with hospice this afternoon. Later on the also joint. No further questions. Spoke to Dr. Bobo this afternoon a PEG tube was placed. Will be used primarily for drainage. January 08: Sitting up in a chair. Slight abdominal discomfort. PEG tube draining well. Care was discussed with the patient and at the bedside. Diet discussed. Going home with hospice. Questions answered. Discussion and discharge planning more than 35 minutes On examination: VITAL SIGNS: 98.6, 62, 15, 145/75, 96% room air GENERAL APPEARANCE: , reclining in chair HEENT: NG tube to suction. Dry mucous membrane EYES: Pupils equal. Conjunctiva pale NECK: JVD not raised. Mass not palpable. RESPIRATORY: Respiratory effort normal. Lungs decreased breath sounds CARDIOVASCULAR: First and second sounds normal. No edema. ABDOMEN: Soft. Mild tenderness. Liver and spleen not palpable. PEG tube with drainage bag. PSYCHIATRY: Alert and oriented x3. Mood and affect bit anxious. INVESTIGATIONS, reviewed in the clinical context: White count 10.3 hemoglobin 15.1 platelets 159 progression 3.5 BUN 23 creatinine 0.59 Fluoroscopy upper GI [January 05]: Irregularity involving the distal pylorus. Limited amount of contrast in the duodenum. CT abdomen pelvis: Abdominal ascites. Mainly around the liver. Increased from recent exam. Dilated stomach. Assessment and plan: -gastric outlet obstruction secondary to extrinsic compression metastatic disease from pancreatic cancer: NG tube to suction removed. EGD on January 06 showed extensive compression. PEG tube drainage bag. Patient and family decided not for any further intervention. -Metastatic pancreatic cancer: Advanced Under care of Dr. Lombardo. Palliative treatment. Attempted pancreatic cancer resection, in the OR was found to have peritoneal metastatic the surgery was aborted -Chronic nicotine dependence, cigarette smoker -Diabetes mellitus type 2 Trulicity weekly-will discontinue. -Secondary peritoneal ascites due to pancreatic cancer/peritoneal metastasis: Not improving palliative paracentesis as needed -DO NOT RESUSCITATE, home with hospice Disposition: Home with hospice Plan - Discharge Summary Discharge Rx Participant: Yes New Discharge Prescriptions: New Acetaminophen Tab [Tylenol] 650 mg PO Q6HR PRN tab PRN Reason: Mild Pain Or Fever > 100.5 Continue Vit C/E/Zn/Coppr/Lutein/Zeaxan [Preservision Areds 2 Chew Tab] 1 tab PO DAILY Multivitamin [Multivitamins Adult Gummies] 1 tab PO DAILY Mirtazapine [Remeron] 15 mg PO HS PRN PRN Reason: SLEEP Discontinued Saw [place] 500 mg PO BID Docusate [Colace] 100 mg PO BID PRN PRN Reason: Constipation Dulaglutide [Trulicity] 0.75 mg SQ WEEKLY Discharge Medication List Multivitamin [Multivitamins Adult Gummies] 1 tab PO DAILY 06/19/21 [History] Mirtazapine [Remeron] 15 mg PO HS PRN 01/02/22 [History] Vit C/E/Zn/Coppr/Lutein/Zeaxan [Preservision Areds 2 Chew Tab] 1 tab PO DAILY 01/02/22 [History] Acetaminophen Tab [Tylenol] 650 mg PO Q6HR PRN tab 01/08/22 [Rx] Follow up Appointment(s)/Referral(s): [facility] [REFERRING] - 1 Week Blair Zuñiga DO [Primary Care Provider] - 1-2 days (patient instructed to follow-up with physician as needed) Patient Instructions/Handouts: Dehydration (DC), Acute Nausea and Vomiting (DC) Discharge Disposition: HOME WITH HOSPICE
== END 2022-01-08 11:30 | disposition still patient (30) | DRG 375 ==
LOC: EC 16:14 → 5NMEDONC 19:41
PROVIDERS: ADMIT Hospitalist; ATTEND Hospitalist
PROC: 0D9670Z Drainage of Stomach with Drainage Device, Via Natural or Artificial Opening (ICD-10-PCS; 2022-01-06)
PROC: 0DB58ZX Excision of Esophagus, Via Natural or Artificial Opening Endoscopic, Diagnostic (ICD-10-PCS; 2022-01-06)
PROC: 3E0G76Z Introduction of Nutritional Substance into Upper GI, Via Natural or Artificial Opening (ICD-10-PCS; 2022-01-07)
PROC: 0DJ08ZZ Inspection of Upper Intestinal Tract, Via Natural or Artificial Opening Endoscopic (ICD-10-PCS; 2022-01-07)
PROC: 0DH63UZ Insertion of Feeding Device into Stomach, Percutaneous Approach (ICD-10-PCS; principal; 2022-01-07 07:55)
DX: C78.6 Secondary malignant neoplasm of retroperitoneum and peritoneum (principal); C25.9 Malignant neoplasm of pancreas, unspecified; K22.10 Ulcer of esophagus without bleeding; E44.1 Mild protein-calorie malnutrition; R18.0 Malignant ascites; E11.43 Type 2 diabetes mellitus with diabetic autonomic (poly)neuropathy; E86.0 Dehydration; K31.84 Gastroparesis; D72.829 Elevated white blood cell count, unspecified; K29.50 Unspecified chronic gastritis without bleeding; K59.09 Other constipation; K59.00 Constipation, unspecified; K29.70 Gastritis, unspecified, without bleeding; F17.210 Nicotine dependence, cigarettes, uncomplicated; N42.9 Disorder of prostate, unspecified; Z66 Do not resuscitate; Z51.5 Encounter for palliative care; Z53.9 Procedure and treatment not carried out, unspecified reason; Z79.899 Other long term (current) drug therapy; Z88.0 Allergy status to penicillin; Z68.21 Body mass index [BMI] 21.0-21.9, adult; Z92.21 Personal history of antineoplastic chemotherapy
CPT/HCPCS: 36415; 43239; 43246; 74018; 74019; 74177; 74240; 80048; 80053; 83036; 85025; 85610; 85730; 88305; 96374; 99285